=== PATIENT | male | born 1940 | race Caucasian/White ===

== ENCOUNTER 2016-06-15 08:03 | Day surgery (SDC) | payer BC ==
[2016-06-14 15:12] VITALS: BMI 27.6
[2016-06-15] MEDS ORDERED: LIDOCAINE HCL/PF 2% SDV 5ML VIAL ONE (08:54)
[2016-06-15] MEDS ORDERED: PROPOFOL 20 ML ONE (08:54)
[2016-06-15] MEDS ORDERED: LIDOCAINE HCL 2% JELLY 10 ML CARTRIDGE ONE (09:21)
[2016-06-15] MEDS ORDERED: LIDOCAINE HCL 2% JELLY 10 ML CARTRIDGE TP ONE (09:25)
[2016-06-15 09:34] VITALS: TEMP 97.2
[2016-06-15 10:19] VITALS: BP 154/71; PULSE 67
== END 2016-06-15 10:31 | disposition home or self-care (01) ==
LOC: JASU-ENDO 08:03
PROVIDERS: ATTEND Internal Medicine Gastroenterology
PROC: 06LY4CC Occlusion of Hemorrhoidal Plexus with Extraluminal Device, Percutaneous Endoscopic Approach (ICD-10-PCS; principal; 2016-06-15 09:15)
DX: K62.5 Hemorrhage of anus and rectum (principal); K64.8 Other hemorrhoids

== ENCOUNTER 2017-06-27 11:14 | Inpatient (IN) | payer BC, OTHER ==
--- NOTE | 2017-06-27 11:59 | PDOC ---
History of Present Illness - General Chief Complaint: Chest Pain Stated Complaint: CHEST PAIN Time Seen by Provider: 06/27/17 11:43 - History of Present Illness Initial Comments: 06/27/17 11:43 77M with hx of asthma, emphysema, HTN, CAD s/p CABG who presents to the ED with sudden onsent 7/10 R axillary chest pain this morning. Pt reports being in chair when his chest pain suddenly occured. He endorses having some diaphoresis and feeling nauseous when this occurred. Pt report never having pain like this before and that this wasn't similar to when he had his prior CAD episodes. Pt states his pain waxes and wanes now, but has had his pain continuously since the morning. Pt normally sees Dr. Reece in the outpatient setting every 3 months and nothing was notable on his last visit. Pt denies any vomiting, jaw claudication, radiation of pain to other structures, frequent dyspepsia, metallic taste in mouth, abdominal pain, diarrhea, constipation, and tearing back pain. Past History - Past Medical History Allergies/Adverse Reactions: Allergies Allergy/AdvReac Type Severity Reaction Status Date / Time No Known Drug Allergies Allergy Verified 06/27/17 11:17 Home Medications: Ambulatory Orders Albuterol Sulfate [Proventil HFA Inhaler -] 1 - 2 inh PO QID PRN 12/06/12 Clopidogrel Bisulfate [Plavix -] 75 mg PO DAILY 12/06/12 [place]-3 Acid Ethyl Esters [Lovaza -] 2,000 mg PO BID 12/06/12 Simvastatin [Zocor] 80 mg PO HS 12/06/12 Valsartan/Hydrochlorothiazide [Diovan Hct 80-12.5 mg Tablet -] 1 tab PO DAILY Aspirin Coated [Ecotrin -] 81 mg PO DAILY #0 tablet.ec 12/08/12 Atorvastatin Ca [Lipitor] 10 mg PO HS #0 tablet 12/08/12 Hydrochlorothiazide [Hctz -] 12.5 mg PO DAILY #0 cap 12/08/12 Asthma: Yes Cardiac Disorders: Yes (ASCAD) COPD: Yes HTN: Yes Hypercholesterolemia: Yes - Surgical History Abdominal Surgery: Yes (ING HERNIA) Cardiac Surgery: Yes (3 vessel 1996, ST[facility]) - Suicide/Smoking/Psychosocial Hx Smoking History: Never smoked Information on smoking cessation initiated: No Hx Alcohol Use: Yes (wine/dinner) Drug/Substance Use Hx: No Substance Use Type: Alcohol Hx Substance Use Treatment: No *Physical Exam - Vital Signs Last Vital Signs Temp Pulse Resp BP Pulse Ox 50 L 18 137/59 100 06/27/17 11:18 06/27/17 11:18 06/27/17 11:18 06/27/17 11:18 - Physical Exam Comments: 06/27/17 11:51 GEN: NAD, awake, alert and oriented x3, laying in bed HEENT: EOMI, CONNER, no JVD, moist mucosa Lungs: CTA bilaterally, no wheezes rales or rhonchi heard Cardiac: Bradycardic with regular rhythm. 2/6 systolic murmur heard at apex CHEST: No reproducible pain with palpation Abdomen: Soft, nondistended, normoactive bowel sounds, slight tenderness in RUQ , no guarding, no rebound, no shifting dullness, no hepatomegaly. EXT: No edema, warm 2+ DP pulses Heart Score/ECG Review #1 06/27/17 11:50 Bradycardic to 51bpm. NSR. OR interval normal. No ST elevations noted. No previous to compare at this time ED Treatment Course - LABORATORY CBC & Chemistry Diagram: 06/27/17 12:14 06/27/17 12:00 Medical Decision Making - Medical Decision Making 06/27/17 11:50 77yo M with atypical chest pain, however higher risk for ACS --EKG on admission showing bradycardia to 51bpm with no ST elevations --CBC, CMP, Cardiac profile --ASA 325mg x1 --CXR --Pt is hemodynamically stable at this time 06/27/17 12:30 --Pt signed out to Dr. Reid *DC/Admit/Observation/Transfer Diagnosis at time of Disposition: ACS (acute coronary syndrome) - Referrals Referrals: Servando Celestin MD [Primary Care Provider] - - Patient Instructions - Post Discharge Activity
[2017-06-27] MEDS ORDERED: ASPIRIN 325 MG TABLET PO ONE (12:05)
--- NOTE | 2017-06-27 12:09 | PDOC ---
Attending Attestation - Resident Resident Name: Kenneth Marquez - ED Attending Attestation I have performed the following: I have examined & evaluated the patient, The case was reviewed & discussed with the resident, I agree w/resident's findings & plan, Exceptions are as noted - HPI HPI: 06/27/17 13:49 77-year-old male with a history of hypertension and CAD copd cabg here today complaining of right-sided chest pain and upper abdominal pain. Patient states symptoms started today with sudden onset did notice the pain was worse after eating he has not had any vomiting this morning but has been belching frequently. No cough no shortness of breath no fevers or chills no previous abdominal surgery no history of PE or DVT. 06/27/17 13:52 - Physicial Exam PE: 06/27/17 13:50 On exam awake alert no acute distress cardiac exam is regular rate no murmurs rubs or gallops abdomen is soft there is noted epigastric and right upper quadrant tenderness to palpation with a positive Mark sign. No CVA tenderness. Lungs lungs have faint expiratory wheezes at at bilateral bases and poor air flow extremities are warm and well perfused without edema neurological patient is alert and oriented 3 moving all extremities bases symmetric skin is warm and dry - Medical Decision Making 06/27/17 12:04 06/27/17 13:51 69 or male history of hypertension and CAD hyperlipidemia and emphysema here with right-sided chest pain upper abdominal pain and a positive Mark sign on exam Differential includes ACS, right-sided pneumonia with secondary effusion, cholecystitis or cholelithiasis, plan ultrasound the right upper quadrant chest x-ray labs including CBC CMP troponin and urinalysis reassess 06/27/17 16:33 focused eD ultrasound gallbladder indication pain findings multiple stones and sludge. gallbladder wall measured 4mm. positive larry cholecystic fluid and wall edema. cbd 7 mm. positive sonographic mark sign. impression: cholecystitis with stones and sludge. cirilli 06/27/[address] Angeles colindres, surgery consult, awaiting call back. Heart Score/ECG Review #1 General ECG Interpretation: Normal Intervals, No acute ischemic changes 06/27/17 19:02 sinus bradycardia. 51 bpm
[2017-06-27] MEDS ORDERED: ASPIRIN 325 MG TABLET ONE (12:11)
--- NOTE | 2017-06-27 12:37 | PDOC ---
*Physical Exam - Vital Signs Last Vital Signs Temp Pulse Resp BP Pulse Ox 50 L 18 137/59 100 06/27/17 11:18 06/27/17 11:18 06/27/17 11:18 06/27/17 11:18 ED Treatment Course - LABORATORY CBC & Chemistry Diagram: 06/27/17 12:14 06/27/17 12:00 - Medications Given in the ED: ED Medications Discontinued Medications Generic Name Dose Route Start Last Admin Trade Name Enedina PRN Reason Stop Dose Admin Aspirin 325 mg 06/27/17 12:05 06/27/17 12:13 Asa - PO 06/27/17 12:06 325 mg ONCE ONE Administration Medical Decision Making - Medical Decision Making 06/27/17 12:37 The patient was signed out to me by Dr. Marquez, day team. The patient is a 77M presenting with atypical CP. Pending labs and imaging. Likely dispo is obs for ACS workup. 06/27/17 12:56 On reevaluation, the patient had a positive cordova's sign. Will place order for RUQ U/S. 06/27/17 14:41 RUQ U/S read: IMPRESSION: Biliary sludge versus small calculi. Please see above discussion. The gallbladder is normal in size and does contain echogenic material that may represent biliary sludge. The possibility of small calculi cannot be excluded. There is no evidence of intra or extrahepatic biliary duct dilatation. Will discuss with radiologist regarding signs of cholecystitis. Pt is continuing to have severe RUQ tenderness. 06/27/17 15:08 Lipase >30,000. Will microblog Dr. Finch for admission. 06/27/17 15:42 I have endorsed the pt to [facility] for admission. Blood cx and lactate ordered. Will give pt IVF. 06/27/17 15:55 Repeat BP is 179/85. Will give 4 morphine for pain control. *DC/Admit/Observation/Transfer Diagnosis at time of Disposition: ACS (acute coronary syndrome) - Discharge Dispostion Condition at time of disposition: Stable Admit: Yes - Referrals Referrals: Servando Celestin MD [Primary Care Provider] - - Patient Instructions - Post Discharge Activity
[2017-06-27 13:02] LABS: BASO % 0.6 % (0-2.0); EOS % 0.9 % (0-4.5); HEMATOCRIT 44.5 % (35.4-49); HEMOGLOBIN 15.3 GM/dL (11.7-16.9); LYMPH % 26.1 % (8-40); MCH 30.8 pg (25.7-33.7); MCHC 34.3 g/dl (32.0-35.9); MEAN CELL VOLUME 89.7 fl (80-96); MEAN PLT VOLUME 8.3 fl (7.5-11.1); NEUT % 67.4 % (42.8-82.8); PLATELET COUNT 224 K/MM3 (134-434); RBC 4.96 M/mm3 (4.00-5.60); RDW 13.8 % (11.9-15.9); WHITE BLOOD COUNT 10.7 K/mm3 (4.0-10.0)
[2017-06-27 13:16] LABS: ALBUMIN 4.1 g/dl (3.4-5.0); ANION GAP 6 (8-16); BLOOD UREA NITROGEN 23 mg/dL (7-18); CHLORIDE 103 mmol/L (98-107); CO2 30 mmol/L (21-32); GLUCOSE,RANDOM 145 mg/dL (74-106); SGPT/ALT 63 U/L (12-78); SODIUM 139 mmol/L (136-145)
[2017-06-27 13:18] LABS: ALK PHOS 121 U/L (45-117); BILIRUBIN,TOTAL 0.9 mg/dL (0.2-1.0); TOT PROT 8.1 g/dl (6.4-8.2)
[2017-06-27 13:21] LABS: POTASSIUM 3.7 mmol/L (3.5-5.1); SGOT/AST 106 U/L (15-37)
[2017-06-27] MEDS ORDERED: SODIUM CHLORIDE 0.9% 1000 ML INFUS.BAG IV ONE ×2 (15:29→15:30)
[2017-06-27] MEDS ORDERED: PIPERACIL/TAZOB 3.375 GM 3.375 GM/50 ML PREMIX IVPB ONE (15:30)
--- NOTE | 2017-06-27 15:43 | HP ---
Admitting History and Physical - Primary Care Physician PCP: Servando Celestin - Admission Chief Complaint: abd pain History of Present Illness: is a pleasant 77 year old male pmh of HTN, ASHD, CA-s/p CABG(1995), Asthma, Emphysema who presents with new onset right upper abdominal pain x 1 day. Pt reports he had breakfast this am and started to get severe RUQ/ epigastric abdominal pain radiating to back and right anterior chest/thorax. Associated symptoms include nausea, vomiting, belching, dizziness and chills. He describes abdominal pain as tight 9/10 intermittent severe pain. Pt reports pain is tolerable now rating 5/10. Unable to report alleviating/worsening factors. He reports he was at a alliance party last night and had 3 glasses of wine. Denies any new medication. He denies any chest discomfort, sob, fever, diarrhea , headache, or weakness. History Source: Patient, Family Member Limitations to Obtaining History: Language Barrier - Past Medical History Cardiovascular: Yes: CAD, HTN, Hyperlipdemia, CA Pulmonary: Yes: Asthma, COPD (emphysema) - Past Surgical History Past Surgical History: Yes: CABG (1995), Hernia Repair (inguinal) - Smoking History Smoking history: Former smoker Have you smoked in the past 12 months: No - Alcohol/Substance Use Hx Alcohol Use: Yes (wine/dinner) Number of Drinks Daily: 2 History of Substance Use: reports: None - Social History Usual Living Arrangement: Yes: With Spouse Home Medications - Allergies Allergies/Adverse Reactions: Allergies Allergy/AdvReac Type Severity Reaction Status Date / Time No Known Drug Allergies Allergy Verified 06/27/17 11:17 - Home Medications Home Medications: Ambulatory Orders Albuterol Sulfate [Proair Hfa] 8.5 gm IH Q4HWA PRN 06/27/17 Atorvastatin Ca [Lipitor] 40 mg PO HS 06/27/17 Clopidogrel Bisulfate [Plavix] 75 mg PO DAILY 06/27/17 Valsartan/Hydrochlorothiazide [Valsartan-Hctz 160-25 mg Tab] 1 each PO DAILY 12/06 Family Disease History - Family Disease History Family Disease History: Diabetes: Sister, Heart Disease: Mother Physical Examination Vital Signs: Vital Signs Temperature Pulse Rate 50 L 06/27/17 11:18 Respiratory Rate 18 06/27/17 11:18 Blood Pressure 137/59 06/27/17 11:18 O2 Sat by Pulse Oximetry (%) 100 06/27/17 11:18 Constitutional: Yes: Well Nourished, No Distress Cardiovascular: Yes: WNL, Regular Rate and Rhythm. No: Bruit, Gallop, Murmur Respiratory: Yes: WNL, Regular, CTA Bilaterally. No: SOB, Tachypnea, Wheezes Gastrointestinal: Yes: Soft, Hypoactive Bowel Sounds, Tenderness, Epigastrium. No: Distention Renal/: Yes: WNL Edema: No Neurological: Yes: WNL, Alert, Oriented Psychiatric: Yes: WNL, Alert, Oriented Labs: CBC, BMP 06/27/17 12:14 06/27/17 12:00 Imaging - Results Chest X-ray: Report Reviewed Cat Scan: Pending Ultrasound: Report Reviewed EKG: Report Reviewed Problem List - Problems (1) Acute pancreatitis Assessment/Plan: acute, lipase>30,000 with elevated alk phos I suspect biliary induced lactic acid >3 , mild leukocytosis abd US with biliary sludge/stones abd CT with contrast to r/o necrosis LR 200mL/hr x 12 hours then 150ml/hr continuous Levofloxacin and flagyl ordered GI consulted will consult surgery based on CT results Code(s): K85.90 - ACUTE PANCREATITIS WITHOUT NECROSIS OR INFECTION, UNSP Qualifiers: Pancreatitis type: biliary Acute pancreatitis complication: unspecified Qualified Code(s): K85.10 - Biliary acute pancreatitis without necrosis or infection (2) Chest pain Assessment/Plan: pt reports right sided chest pain originated from the abdomen less likely ACS, trop neg , ekg without acute changes secondary to acute pancreatitis Code(s): R07.9 - CHEST PAIN, UNSPECIFIED Qualifiers: Chest pain type: other chest pain Qualified Code(s): R07.89 - Other chest pain; R07.8 - Other chest pain (3) Leukocytosis Assessment/Plan: mildly elevated, could be hemoconcentrated considering elevated lactic acid, will start iv antibiotics Code(s): D72.829 - ELEVATED WHITE BLOOD CELL COUNT, UNSPECIFIED (4) HTN (hypertension) Assessment/Plan: stable could be better controlled hold hct in the setting of acute pancreatitis diovan ordered will monitor Code(s): I10 - ESSENTIAL (PRIMARY) HYPERTENSION Qualifiers: Hypertension type: essential hypertension Qualified Code(s): I10 - Essential (primary) hypertension (5) Hyperlipidemia Assessment/Plan: chronic lipid panel ordered hold statin in the setting of transaminitis Code(s): E78.5 - HYPERLIPIDEMIA, UNSPECIFIED (6) ASHD (arteriosclerotic heart disease) Assessment/Plan: stable, s/p cabg(1995) continue plavix followed by cardiology outpt Code(s): I25.10 - ATHSCL HEART DISEASE OF [place] CORONARY ARTERY W/O ANG PCTRS (7) Emphysema lung Assessment/Plan: stable albuterol prn Code(s): J43.9 - EMPHYSEMA, UNSPECIFIED Qualifiers: Emphysema type: unspecified Qualified Code(s): J43.9 - Emphysema, unspecified
[2017-06-27] MEDS ORDERED: PIPERACILLIN/TAZOB 3.375 GM 3.375 GM in DEXTROSE 5%-WATER - 50 ML IVPB ONE (15:45)
[2017-06-27] MEDS ORDERED: PIPERACILLIN/TAZOB 3.375 GM 3.375 GM/50 ML BAG IVPB ONE (15:52)
[2017-06-27] MEDS ORDERED: morphine CARPU-JECT 4 MG/1 ML DISP.SYRIN IVPUSH ONE (15:55)
[2017-06-27] MEDS ORDERED: ALBUTEROL SO4 18 GM HFA INHALER IH PRN (16:29)
[2017-06-27] MEDS ORDERED: LACTATED RINGERS SOLUTION 1000 ML INFUS.BAG IV SCH (16:30)
[2017-06-27] MEDS ORDERED: LACTATED RINGERS SOLUTION 1,000 ML IV SCH (17:15)
[2017-06-27] MEDS ORDERED: morphine SULFATE 4 MG/ML VIAL IVPUSH ONE (17:30)
[2017-06-27] MEDS ORDERED: morphine SULFATE 4 MG/ML VIAL IVPUSH PRN (18:00)
[2017-06-27 19:41] LABS: LIPASE > 30000 U/L (73-393)
[2017-06-27] MEDS ORDERED: ONDANSETRON 4 MG/2 ML VIAL IVPUSH PRN (20:23)
[2017-06-27] MEDS ORDERED: CEFEPIME HCL/D5W 2 GM/50 ML BAG IVPB SCH (20:30)
[2017-06-27] MEDS ORDERED: ONDANSETRON 4 MG/2 ML VIAL IVPUSH ONE (20:30)
[2017-06-27] MEDS: VALSARTAN 160 MG TABLET (UD) PO SCH (22:46)
--- NOTE | 2017-06-27 23:47 | EKG ---
Test Reason : Blood Pressure : / mmHG Vent. Rate : 051 BPM Atrial Rate : 051 BPM P-R Int : 130 ms QRS Dur : 102 ms QT Int : 518 ms P-R-T Axes : 070 003 033 degrees QTc Int : 477 ms SINUS BRADYCARDIA POSSIBLE LEFT ATRIAL ENLARGEMENT INFERIOR INFARCT (CITED ON OR BEFORE 01-APR-2003) ABNORMAL ECG WHEN COMPARED WITH ECG OF 01-APR-2003 09:45, T WAVE VARIATION Confirmed by KEDAR DUPREE, LACY ([id number]) on 06/27/2017 11:46:30 PM Referred By: Confirmed By:LACY THACKER MD
[2017-06-28 03:18] VITALS: BMI 25.9
[2017-06-28] MEDS ORDERED: LACTATED RINGERS SOLUTION 1,000 ML IV SCH (05:30)
[2017-06-28 07:42] LABS: BASO % 0.1 % (0-2.0); HEMOGLOBIN 13.2 GM/dL (11.7-16.9); LYMPH % 3.7 % (8-40); MCHC 34.8 g/dl (32.0-35.9); MEAN PLT VOLUME 8.2 fl (7.5-11.1); MONO % 2.5 % (3.8-10.2); NEUT % 93.7 % (42.8-82.8); PLATELET COUNT 171 K/MM3 (134-434); RBC 4.27 M/mm3 (4.00-5.60); RDW 13.9 % (11.9-15.9); WHITE BLOOD COUNT 12.9 K/mm3 (4.0-10.0)
[2017-06-28 08:16] LABS: AMYLASE 561 U/L (25-115)
[2017-06-28 08:18] LABS: LIPASE 4327 U/L (73-393)
[2017-06-28 08:31] LABS: CHLORIDE 103 mmol/L (98-107); POTASSIUM 3.2 mmol/L (3.5-5.1); SODIUM 142 mmol/L (136-145)
[2017-06-28 08:41] LABS: ALBUMIN 3.4 g/dl (3.4-5.0); ALK PHOS 72 U/L (45-117); BILIRUBIN,TOTAL 0.9 mg/dL (0.2-1.0); BLOOD UREA NITROGEN 20 mg/dL (7-18); CALCIUM 8.1 mg/dL (8.5-10.1); CHOLESTEROL 172 mg/dL (50-200); CO2 29 mmol/L (21-32); CREATININE 1.1 mg/dL (0.7-1.3); GLUCOSE,RANDOM 104 mg/dL (74-106); HDL CHOLESTEROL 59 mg/dL (40-60); MAGNESIUM 1.4 mg/dL (1.8-2.4); PHOSPHOROUS 2.6 mg/dL (2.5-4.9); SGOT/AST 38 U/L (15-37); SGPT/ALT 55 U/L (12-78); TOT PROT 6.3 g/dl (6.4-8.2); TRIGLYCERIDES 102 mg/dL (35-160)
[2017-06-28] MEDS ORDERED: MAGNESIUM 2GM/50ML STERILE WATER IVPB IVPB ONE (09:04)
[2017-06-28] MEDS: VALSARTAN 160 MG TABLET (UD) PO SCH (09:59)
[2017-06-28] MEDS ORDERED: CLOPIDOGREL BISULFATE 75 MG TABLET (FP) PO SCH (10:00)
[2017-06-28] MEDS ORDERED: KCL 10 MEQ IVPB 10 MEQ/100 ML INFUS.BAG IVPB SCH (10:45)
[2017-06-28] MEDS ORDERED: POTASSIUM CHLORIDE 20 MEQ in SODIUM CHLORIDE 250 ML IVPB ONE (11:00)
--- NOTE | 2017-06-28 14:48 | PN ---
Progress Note, Physician Chief Complaint: Pt lying in bed in no acute distress. reports intermittent abd pain. denies any chest discomfort, n/v/d - Current Medication List Current Medications: Active Medications Albuterol Sulfate (Ventolin Hfa Inhaler -) 2 puff IH Q4H PRN PRN Reason: SHORTNESS OF BREATH Clopidogrel Bisulfate (Plavix -) 75 mg PO DAILY [facility] Last Admin: 06/28/17 10:00 Dose: 75 mg Lactated Ringer's (Lactated Ringers Solution) 1,000 mls @ 150 mls/hr IV ASDIR [facility] Last Admin: 06/28/17 09:58 Dose: Not Given Metronidazole (Flagyl 500mg Premixed Ivpb -) 500 mg in 100 mls @ 100 mls/hr IVPB Q8H-IV [facility] Last Admin: 06/28/17 09:59 Dose: 100 mls/hr Levofloxacin (Levaquin 500 Mg Premixed Ivpb -) 500 mg in 100 mls @ 100 mls/hr IVPB DAILY [facility] Last Admin: 06/28/17 10:00 Dose: 100 mls/hr Morphine Sulfate (Morphine Sulfate) 2 mg IVPUSH Q4H PRN PRN Reason: PAIN LEVEL 6-10 Last Admin: 06/28/17 10:12 Dose: 2 mg Ondansetron HCl (Zofran Injection) 4 mg IVPUSH Q6H PRN PRN Reason: NAUSEA Last Admin: 06/28/17 01:00 Dose: 4 mg Valsartan (Diovan -) 160 mg PO DAILY [facility] Last Admin: 06/28/17 09:59 Dose: 160 mg - Objective Vital Signs: Vital Signs Temperature 98.5 F 06/28/17 05:00 Pulse Rate 69 06/28/17 05:00 Respiratory Rate 20 06/28/17 05:00 Blood Pressure 123/53 06/28/17 05:00 O2 Sat by Pulse Oximetry (%) 97 06/27/17 19:30 Constitutional: Yes: Well Nourished, No Distress Cardiovascular: Yes: WNL, Regular Rate and Rhythm. No: Bruit, Gallop, Murmur Respiratory: Yes: WNL, Regular, CTA Bilaterally. No: Rhonchi, SOB, Tachypnea, Wheezes Gastrointestinal: Yes: WNL, Hypoactive Bowel Sounds, Tenderness, Epigastrium. No: Distention Genitourinary: Yes: WNL Edema: No Neurological: Yes: WNL, Alert, Oriented Psychiatric: Yes: WNL, Alert, Oriented Labs: CBC, BMP 06/28/17 07:00 06/28/17 07:00 - ....Imaging Cat Scan: Report Reviewed Problem List - Problems (1) Acute pancreatitis Code(s): K85.90 - ACUTE PANCREATITIS WITHOUT NECROSIS OR INFECTION, UNSP Qualifiers: Pancreatitis type: biliary Acute pancreatitis complication: unspecified Qualified Code(s): K85.10 - Biliary acute pancreatitis without necrosis or infection (2) Chest pain Code(s): R07.9 - CHEST PAIN, UNSPECIFIED Qualifiers: Chest pain type: other chest pain Qualified Code(s): R07.89 - Other chest pain; R07.8 - Other chest pain (3) Leukocytosis Code(s): D72.829 - ELEVATED WHITE BLOOD CELL COUNT, UNSPECIFIED (4) HTN (hypertension) Code(s): I10 - ESSENTIAL (PRIMARY) HYPERTENSION Qualifiers: Hypertension type: essential hypertension Qualified Code(s): I10 - Essential (primary) hypertension (5) Hyperlipidemia Code(s): E78.5 - HYPERLIPIDEMIA, UNSPECIFIED (6) ASHD (arteriosclerotic heart disease) Code(s): I25.10 - ATHSCL HEART DISEASE OF [place] CORONARY ARTERY W/O ANG PCTRS (7) Emphysema lung Code(s): J43.9 - EMPHYSEMA, UNSPECIFIED Qualifiers: Emphysema type: unspecified Qualified Code(s): J43.9 - Emphysema, unspecified Assessment/Plan (1) Acute pancreatitis Assessment/Plan: acute, lipase>30,000 with elevated alk phos at admission, Improving lfts improved, suspect passing of stone lactic acid improving, leukocytosis abd US with biliary sludge/stones abd CT consistent w/ pancreatitis, gallbladder not mentioned, radialogy called, no response, GI to f/u on CT results MRCP pending- r/o cbd stone LR 150ml/hr Levofloxacin and flagyl GI following will consult surgery based on GI recs Code(s): K85.90 - ACUTE PANCREATITIS WITHOUT NECROSIS OR INFECTION, UNSP Qualifiers: Pancreatitis type: biliary Acute pancreatitis complication: unspecified Qualified Code(s): K85.10 - Biliary acute pancreatitis without necrosis or infection (2) Chest pain Assessment/Plan: resolved Code(s): R07.9 - CHEST PAIN, UNSPECIFIED Qualifiers: Chest pain type: other chest pain Qualified Code(s): R07.89 - Other chest pain; R07.8 - Other chest pain (3) Leukocytosis Assessment/Plan: trended up w/ left shift lactic acid improved continue antibiotics will monitor Code(s): D72.829 - ELEVATED WHITE BLOOD CELL COUNT, UNSPECIFIED (4) HTN (hypertension) Assessment/Plan: controlled hold hct in the setting of acute pancreatitis diovan ordered will monitor Code(s): I10 - ESSENTIAL (PRIMARY) HYPERTENSION Qualifiers: Hypertension type: essential hypertension Qualified Code(s): I10 - Essential (primary) hypertension (5) Hyperlipidemia Assessment/Plan: chronic lipid panel ordered hold statin in the setting of transaminitis Code(s): E78.5 - HYPERLIPIDEMIA, UNSPECIFIED (6) ASHD (arteriosclerotic heart disease) Assessment/Plan: stable, s/p cabg(1995) continue plavix followed by cardiology outpt Code(s): I25.10 - ATHSCL HEART DISEASE OF [place] CORONARY ARTERY W/O ANG PCTRS (7) Emphysema lung Assessment/Plan: stable albuterol prn Code(s): J43.9 - EMPHYSEMA, UNSPECIFIED Qualifiers: Emphysema type: unspecified Qualified Code(s): J43.9 - Emphysema, unspecified
--- NOTE | 2017-06-28 19:53 | CON.GI ---
Consult Consult Specialty:: Gastroenterology Referred by:: Dr. Celestin Reason for Consultation:: Biliary pancreatitis - History of Present Illness Chief Complaint: Abdominal and right back pain History of Present Illness: 77M developed pain in the right scapula after eating breakfast yesterday. The pain became very severe and he felt chills and diaphoresis. He later developed severe epigastric pain which required morphine in the ER where he also vomited. The severe pain has subsided but he has a residual ache. He has had twinges of scapular pain before but never so severe. He was previously followed by Dr Egan who last did polypectomies. He last had a colonoscopy on 06/15/[address] associate [address] Ryan Meyer who did rubber band ligation of hemorrhoids for persistent bleeding. No polyps were found. He has enjoyed good luis antonio recently with a good appetite. He moves his bowel regularly. - History Source History Provided By: Patient, Family Member Limitations to Obtaining History: No Limitations - Past Medical History Cardio/Vascular: Yes: CAD ([place] in 1995 with CABG and subsequent stents), HTN, Hyperlipdemia, [place] (1995 when he underwent a 3 vessel CABG at [facility]) Pulmonary: Yes: Asthma, COPD (emphysema) Gastrointestinal: Yes: Hemorrhoids (rubber band ligated 06/15/16), Other (colon polyps) Renal/: Yes: Cancer (prostate cancer treated with RT) - Past Surgical History Past Surgical History: Yes: CABG (1995), Carotid Endarterectomy (right side 2012 ), Colonoscopy, Hernia Repair (left inguinal) - Alcohol/Substance Use Hx Alcohol Use: Yes (wine/dinner) Number of Drinks Daily: 2 History of Substance Use: reports: None - Smoking History Smoking history: Former smoker Have you smoked in the past 12 months: No If you are a former smoker, when did you quit?: 1995 - Social History Usual Living Arrangement: With Spouse ADL: Independent Occupation: retired form [email or web address] Place of : Other ([place]) Came to [place] (year[place] age19 History of Recent Travel: No Home Medications - Allergies Allergies/Adverse Reactions: Allergies Allergy/AdvReac Type Severity Reaction Status Date / Time No Known Drug Allergies Allergy Verified 06/27/17 11:17 - Home Medications Home Medications: Ambulatory Orders Albuterol Sulfate [Proair Hfa] 8.5 gm IH Q4HWA PRN 06/27/17 Atorvastatin Ca [Lipitor] 40 mg PO HS 06/27/17 Clopidogrel Bisulfate [Plavix] 75 mg PO DAILY 06/27/17 Valsartan/Hydrochlorothiazide [Valsartan-Hctz 160-25 mg Tab] 1 each PO DAILY 12/06 Family Disease History - Family Disease History Family Disease History: Diabetes: Sister, Heart Disease: Mother Review of Systems - Review of Systems Constitutional: reports: Chills, Diaphoresis Eyes: reports: No Symptoms HENT: reports: No Symptoms Neck: reports: No Symptoms Cardiovascular: reports: No Symptoms Respiratory: reports: No Symptoms Gastrointestinal: reports: Abdominal Pain, Nausea, Vomiting Genitourinary: reports: No Symptoms Musculoskeletal: reports: No Symptoms Neurological: reports: No Symptoms Physical Exam-GI Vital Signs: Vital Signs Temperature 98.8 F 06/28/17 14:00 Pulse Rate 73 06/28/17 14:00 Respiratory Rate 20 06/28/17 09:00 Blood Pressure 116/57 06/28/17 14:00 O2 Sat by Pulse Oximetry (%) 96 06/28/17 09:00 CBC,CMP WBC 12.9 K/mm3 (4.0-10.0) H 06/28/17 07:00 RBC 4.27 M/mm3 (4.00-5.60) 06/28/17 07:00 Hgb 13.2 GM/dL (11.7-16.9) D 06/28/17 07:00 Hct 38.0 % (35.4-49) 06/28/17 07:00 MCV 89.0 fl (80-96) 06/28/17 07:00 MCH 31.0 pg (25.7-33.7) 06/28/17 07:00 MCHC 34.8 g/dl (32.0-35.9) 06/28/17 07:00 RDW 13.9 % (11.9-15.9) 06/28/17 07:00 Plt Count 171 K/MM3 (134-434) D 06/28/17 07:00 MPV 8.2 fl (7.5-11.1) 06/28/17 07:00 Neutrophils % 93.7 % (42.8-82.8) H D 06/28/17 07:00 Lymphocytes % 3.7 % (8-40) L D 06/28/17 07:00 Monocytes % 2.5 % (3.8-10.2) L 06/28/17 07:00 Eosinophils % 0.0 % (0-4.5) D 06/28/17 07:00 Basophils % 0.1 % (0-2.0) 06/28/17 07:00 Sodium 142 mmol/L (136-145) 06/28/17 07:00 Potassium 3.2 mmol/L (3.5-5.1) L 06/28/17 07:00 Chloride 103 mmol/L (98-107) 06/28/17 07:00 Carbon Dioxide 29 mmol/L (21-32) 06/28/17 07:00 Anion Gap 6 (8-16) L 06/27/17 12:00 BUN 20 mg/dL (7-18) H 06/28/17 07:00 Creatinine 1.1 mg/dL (0.7-1.3) 06/28/17 07:00 Creat Clearance w eGFR > 60 (>60) 06/28/17 07:00 POC Glucometer 104 UNITS (80-120) 06/28/17 17:14 Random Glucose 104 mg/dL (74-106) D 06/28/17 07:00 Lactic Acid 2.8 mmol/L (0.0-2.0) H* 06/28/17 07:00 Calcium 8.1 mg/dL (8.5-10.1) L 06/28/17 07:00 Phosphorus 2.6 mg/dL (2.5-4.9) 06/28/17 07:00 Magnesium 1.4 mg/dL (1.8-2.4) L 06/28/17 07:00 Total Bilirubin 0.9 mg/dL (0.2-1.0) 06/28/17 07:00 AST 38 U/L (15-37) H D 06/28/17 07:00 ALT 55 U/L (12-78) 06/28/17 07:00 Alkaline Phosphatase 72 U/L (45-117) D 06/28/17 07:00 Creatine Kinase 259 IU/L (39-308) 06/27/17 12:00 Creatine Kinase Index 1.3 % (0.0-5.0) 06/27/17 12:00 CK-MB (CK-2) 3.372 ng/mL (0.5-3.6) 06/27/17 12:00 Troponin I 0.02 ng/ml (0.00-0.05) 06/28/17 07:00 Total Protein 6.3 g/dl (6.4-8.2) L D 06/28/17 07:00 Albumin 3.4 g/dl (3.4-5.0) 06/28/17 07:00 Triglycerides 102 mg/dL (35-160) 06/28/17 07:00 Cholesterol 172 mg/dL (50-200) 06/28/17 07:00 Total LDL Cholesterol 98 mg/dL (5-100) 06/28/17 07:00 HDL Cholesterol 59 mg/dL (40-60) 06/28/17 07:00 Total Amylase 561 U/L (25-115) H 06/28/17 07:00 Lipase 4327 U/L (73-393) H 06/28/17 07:00 Current Medications Generic Name Dose Route Start Last Admin Trade Name Freq PRN Reason Stop Dose Admin Albuterol Sulfate 2 puff 06/27/17 16:29 Ventolin Hfa Inhaler - IH Q4H PRN SHORTNESS OF BREATH Clopidogrel Bisulfate 75 mg 06/28/17 10:00 06/28/17 10:00 Plavix - PO 75 mg DAILY SIMONE Administration Lactated Ringer's 1,000 mls @ 150 mls/hr 06/28/17 05:30 06/28/17 09:58 Lactated Ringers Solution IV Not Given ASDIR SIMONE Metronidazole 500 mg in 100 mls @ 100 mls/hr 06/27/17 20:30 06/28/17 17:57 Flagyl 500mg Premixed Ivpb - IVPB 100 mls/hr Q8H-IV SIMONE Administration Levofloxacin 500 mg in 100 mls @ 100 mls/hr 06/27/17 20:45 06/28/17 10:00 Levaquin 500 Mg Premixed Ivpb - IVPB 100 mls/hr DAILY SIMONE Administration Morphine Sulfate 2 mg 06/27/17 18:00 06/28/17 10:12 Morphine Sulfate IVPUSH 2 mg Q4H PRN Administration PAIN LEVEL 6-10 Ondansetron HCl 4 mg 06/27/17 20:23 06/28/17 01:00 Zofran Injection IVPUSH 4 mg Q6H PRN Administration NAUSEA Valsartan 160 mg 06/27/17 20:45 06/28/17 09:59 Diovan - PO 160 mg DAILY SIMONE Administration Constitutional: Yes: Anxious Eyes: Yes: Conjunctiva Clear HENT: Yes: Atraumatic Neck: Yes: Supple, Other (right sided incision) Cardiovascular: Yes: Regular Rate and Rhythm, Other (healed median sternotomy incision) Respiratory: Yes: CTA Bilaterally Gastrointestinal Inspection: Yes: Scars (healed LIH) ...Auscultate: Yes: Hypoactive Bowel Sounds ...Palpate: Yes: Tenderness, Epigastium (mild) ...Rectal Exam: Yes: Guaiac Negative, Sphincter Tone Normal Genitourinary: Yes: Other (no hernias) Edema: No Peripheral Pulses WNL: Yes Neurological: Yes: Alert Labs: CBC, BMP 06/28/17 07:00 06/28/17 07:00 Imaging - Results Cat Scan: Report Reviewed (Adarsh Marmolejo Name: [facility] DEPARTMENT OF RADIOLOGY Phys: Lauren 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 Triphasic pancreatic protocol was utilized. The pancreas is somewhat edematous in appearance with peripancreatic stranding and a small amount of fluid. This is consistent with acute pancreatitis. Clinical and laboratory correlation is recommended. There is no evidence of a peripancreatic fluid collection suggesting a pseudocyst or abscess. There is no CT evidence of pancreatic necrosis. The liver is normal in size. It is hypodense in texture consistent with diffuse fatty infiltration. No mass lesions are identified within the liver. The spleen and adrenal glands demonstrate no significant abnormalities. There are 2 small hypodensities within the cortex of the right kidney. These may represent hyperdense cysts. Ultrasound follow-up is recommended. There is no evidence of intra-abdominal or retroperitoneal lymphadenopathy or fluid collections. There is extensive calcification within the abdominal aorta and its branches, as well as the common iliac arteries. There appears to be a significant stenosis involving the right MARYANA. Clinical correlation is advised. There is no evidence of pneumoperitoneum, bowel obstruction or intra- abdominal abscess. There is no CT evidence of acute appendicitis or diverticulitis. Examination of the pelvis demonstrates no evidence of pelvic masses, fluid collections or lymphadenopathy. The patient is S/P right inguinal herniorrhaphy. There is a small fat-containing left inguinal hernia with an associated hydrocele within the left hemiscrotum. There is no evidence of acute bony abnormalities. IMPRESSION: Findings consistent with acute pancreatitis without abscess or pseudocyst formation. There is no evidence of pancreatic necrosis. No additional evidence of acute pathology within the abdomen or pelvis. Please see above discussion. Reported By: Skip Fallon MD 06/28/17906 Technologist: Tray Carter Transcribed Date/Time: 06/28/17906 Gun Number: Skip Fallon Printed Date/Time: By: Signed by: Skip Fallon Signed on: Jun-2017 09:08) Ultrasound: Report Reviewed (small GB stones vs sludge) Problem List - Problems (1) Biliary acute pancreatitis Assessment/Plan: The picture is entirely consistent with biliary pancreatitis. I explained this senait the patient and his family and discussed the potential need for an ERCP to remove the stones or at least stent the duct until Plavix wears off should cholangitis ensue. I have discussed the procedure in detail and informed them of the potential for such complications as perforation and hemorrhage. I also informed them of the potential for ERCP induced pancreatitis leading to multiorgan failure. After answering all of their questions, Kyle signed an informed consent. I explained that I suspect that he passed the stone on his own but that we need an MRCP to confirm this. I also explained that he angelito need a cholecystectomy to prevent such recurrences and that this and ERCP extractions will need to wait until the Plavix wears off. I will stop the Plavix. Continue antibiotics. Would consult surgery. Code(s): K85.10 - BILIARY ACUTE PANCREATITIS WITHOUT NECROSIS OR INFECTION (2) Cholelithiasis Code(s): K80.20 - CALCULUS OF GALLBLADDER W/O CHOLECYSTITIS W/O OBSTRUCTION (3) Colon polyps Code(s): K63.5 - POLYP OF COLON
[2017-06-29] MEDS ORDERED: ALBUTEROL SO4 18 GM HFA INHALER IH PRN (00:23)
[2017-06-29] MEDS ORDERED: ONDANSETRON 4 MG/2 ML VIAL IVPUSH PRN (00:23)
[2017-06-29] MEDS ORDERED: morphine SULFATE 4 MG/ML VIAL IVPUSH PRN (00:23)
[2017-06-29] MEDS ORDERED: LACTATED RINGERS SOLUTION 1,000 ML IV SCH ×2 (00:23→13:30)
[2017-06-29] MEDS ORDERED: PIPERACIL/TAZOB 3.375 GM 3.375 GM/50 ML PREMIX IVPB ONE (00:23)
[2017-06-29 06:30] LABS: BASO % 0.1 % (0-2.0); EOS % 0.7 % (0-4.5); HEMATOCRIT 34.7 % (35.4-49); HEMOGLOBIN 12.4 GM/dL (11.7-16.9); LYMPH % 6.7 % (8-40); MCH 31.9 pg (25.7-33.7); MCHC 35.6 g/dl (32.0-35.9); MEAN CELL VOLUME 89.5 fl (80-96); MEAN PLT VOLUME 8.4 fl (7.5-11.1); MONO % 3.4 % (3.8-10.2); NEUT % 89.1 % (42.8-82.8); PLATELET COUNT 139 K/MM3 (134-434); RBC 3.88 M/mm3 (4.00-5.60); RDW 14.3 % (11.9-15.9); WHITE BLOOD COUNT 9.5 K/mm3 (4.0-10.0)
[2017-06-29 06:35] LABS: INR 1.24 (0.82-1.09)
[2017-06-29 06:44] LABS: ALBUMIN 3.2 g/dl (3.4-5.0); ANION GAP 8 (8-16); BLOOD UREA NITROGEN 18 mg/dL (7-18); CALCIUM 8.1 mg/dL (8.5-10.1); CHLORIDE 106 mmol/L (98-107); CO2 29 mmol/L (21-32); GLUCOSE,RANDOM 97 mg/dL (74-106); MAGNESIUM 2.1 mg/dL (1.8-2.4); POTASSIUM 3.2 mmol/L (3.5-5.1); SODIUM 143 mmol/L (136-145)
[2017-06-29 06:47] LABS: ALK PHOS 66 U/L (45-117); BILIRUBIN,TOTAL 1.1 mg/dL (0.2-1.0); PHOSPHOROUS 1.4 mg/dL (2.5-4.9); SGOT/AST 44 U/L (15-37); SGPT/ALT 46 U/L (12-78)
[2017-06-29 06:48] LABS: AMYLASE 141 U/L (25-115)
[2017-06-29 06:49] LABS: LIPASE 613 U/L (73-393)
[2017-06-29] MEDS: VALSARTAN 160 MG TABLET (UD) PO SCH (09:45)
--- NOTE | 2017-06-29 11:04 | PN ---
Progress Note, Physician - Current Medication List Current Medications: Active Medications Albuterol Sulfate (Ventolin Hfa Inhaler -) 2 puff IH Q4H PRN PRN Reason: SHORTNESS OF BREATH Metronidazole (Flagyl 500mg Premixed Ivpb -) 500 mg in 100 mls @ 100 mls/hr IVPB Q8H-IV SIMONE Last Admin: 06/29/17 09:45 Dose: 100 mls/hr Lactated Ringer's (Lactated Ringers Solution) 1,000 mls @ 150 mls/hr IV ASDIR SIMONE Last Admin: 06/29/17 09:47 Dose: 150 mls/hr Levofloxacin (Levaquin 500 Mg Premixed Ivpb -) 500 mg in 100 mls @ 100 mls/hr IVPB DAILY [facility] Last Admin: 06/29/17 09:45 Dose: 100 mls/hr Morphine Sulfate (Morphine Sulfate) 2 mg IVPUSH Q4H PRN PRN Reason: PAIN LEVEL 6-10 Last Admin: 06/29/17 09:45 Dose: 2 mg Ondansetron HCl (Zofran Injection) 4 mg IVPUSH Q6H PRN PRN Reason: NAUSEA Potassium Phos/Sodium Phos (Phos-Nak Packet -) 1 packet PO TID [facility] Valsartan (Diovan -) 160 mg PO DAILY [facility] Last Admin: 06/29/17 09:45 Dose: 160 mg - Objective Vital Signs: Vital Signs Temperature 98.8 F 06/29/17 05:00 Pulse Rate 78 06/29/17 05:00 Respiratory Rate 16 06/29/17 05:00 Blood Pressure 140/67 06/29/17 05:00 O2 Sat by Pulse Oximetry (%) 97 06/28/17 21:00 Labs: CBC, BMP 06/29/17 06:00 06/29/17 06:00 INR, PTT INR 1.24 (0.82-1.09) H 06/29/17 06:00 Problem List - Problems (1) Acute pancreatitis Code(s): K85.90 - ACUTE PANCREATITIS WITHOUT NECROSIS OR INFECTION, UNSP Qualifiers: Pancreatitis type: biliary Acute pancreatitis complication: unspecified Qualified Code(s): K85.10 - Biliary acute pancreatitis without necrosis or infection (2) Chest pain Code(s): R07.9 - CHEST PAIN, UNSPECIFIED Qualifiers: Chest pain type: other chest pain Qualified Code(s): R07.89 - Other chest pain; R07.8 - Other chest pain (3) Leukocytosis Code(s): D72.829 - ELEVATED WHITE BLOOD CELL COUNT, UNSPECIFIED (4) HTN (hypertension) Code(s): I10 - ESSENTIAL (PRIMARY) HYPERTENSION Qualifiers: Hypertension type: essential hypertension Qualified Code(s): I10 - Essential (primary) hypertension (5) Hyperlipidemia Code(s): E78.5 - HYPERLIPIDEMIA, UNSPECIFIED (6) ASHD (arteriosclerotic heart disease) Code(s): I25.10 - ATHSCL HEART DISEASE OF [place] CORONARY ARTERY W/O ANG PCTRS (7) Emphysema lung Code(s): J43.9 - EMPHYSEMA, UNSPECIFIED Qualifiers: Emphysema type: unspecified Qualified Code(s): J43.9 - Emphysema, unspecified
--- NOTE | 2017-06-29 11:15 | CONSULT ---
Consult Consult Specialty:: general surgery Referred by:: rosetta Reason for Consultation:: choledocholithis and pancreatitis - History of Present Illness Chief Complaint: abdominal pain History of Present Illness: 77 yo male PMH HTN, ASHD, [place]-s/p CABG(1995), Asthma, Emphysema who presents with new onset right upper abdominal pain x 1 day. Pt reports he had breakfast this am and started to get severe RUQ/epigastric abdominal pain radiating to back and right anterior chest/thorax. Associated symptoms include nausea, vomiting, belching, dizziness and chills. He describes abdominal pain as tight 9 /10 intermittent severe pain. Pt reports pain is tolerable now rating 5/10. Unable to report alleviating/worsening factors. He reports he was at a [employer] last night and had 3 glasses of wine. Denies any new medication. Ultrasound of RUQ shows microcalculi and sludge and MRCP shows no acute obstructing stone but acute pancreatitis. We were asked to assess. - History Source History Provided By: Patient, Medical Record Limitations to Obtaining History: No Limitations - Past Medical History Cardio/Vascular: Yes: CAD ([place] in 1995 with CABG and subsequent stents), HTN, Hyperlipdemia, [place] (1995 when he underwent a 3 vessel CABG at [facility]) Pulmonary: Yes: Asthma, COPD (emphysema) Gastrointestinal: Yes: Hemorrhoids (rubber band ligated 06/15/16), Other (colon polyps) Renal/: Yes: Cancer (prostate cancer treated with RT) - Past Surgical History Past Surgical History: Yes: CABG (1995), Carotid Endarterectomy (right side 2012 ), Colonoscopy, Hernia Repair (left inguinal) - Alcohol/Substance Use Hx Alcohol Use: Yes (wine/dinner) Number of Drinks Daily: 2 History of Substance Use: reports: None - Smoking History Smoking history: Former smoker Have you smoked in the past 12 months: No If you are a former smoker, when did you quit?: 1995 - Social History Usual Living Arrangement: With Spouse ADL: Independent Occupation: retired form [employer] History of Recent Travel: No Home Medications - Allergies Allergies/Adverse Reactions: Allergies Allergy/AdvReac Type Severity Reaction Status Date / Time No Known Drug Allergies Allergy Verified 06/27/17 11:17 - Home Medications Home Medications: Ambulatory Orders Albuterol Sulfate [Proair Hfa] 8.5 gm IH Q4HWA PRN 06/27/17 Atorvastatin Ca [Lipitor] 40 mg PO HS 06/27/17 Clopidogrel Bisulfate [Plavix] 75 mg PO DAILY 06/27/17 Valsartan/Hydrochlorothiazide [Valsartan-Hctz 160-25 mg Tab] 1 each PO DAILY 12/06 Family Disease History - Family Disease History Family Disease History: Diabetes: Sister, Heart Disease: Mother Review of Systems - Review of Systems Constitutional: denies: Chills, Fever Eyes: denies: Blurred Vision, Recent Change in Vision HENT: denies: Difficult Swallowing, Throat Pain Neck: denies: Lumps, Swollen Glands Cardiovascular: denies: Chest Pain, Palpitations Respiratory: denies: Cough, SOB Gastrointestinal: reports: Abdominal Pain, Bloating, Indigestion Genitourinary: denies: Discharge, Dysuria Breasts: reports: No Symptoms Reported. denies: Pain Musculoskeletal: denies: Muscle Pain, Muscle Weakness Integumentary: denies: Lesions, Rash Neurological: denies: Confusion, Seizure, Syncope Endocrine: denies: Unexplained Weight Gain, Unexplained Weight Loss Hematology/Lymphatic: denies: Easily Bruised, Excessive Bleeding Psychiatric: denies: Anxiety, Depression Physical Exam Vital Signs: Vital Signs Temperature 98.8 F 06/29/17 05:00 Pulse Rate 78 06/29/17 05:00 Respiratory Rate 16 06/29/17 05:00 Blood Pressure 140/67 06/29/17 05:00 O2 Sat by Pulse Oximetry (%) 97 06/28/17 21:00 Vital Signs Period Temp Pulse Resp BP Sys/Hancock Pulse Ox Last 24 Hr 97.5 F-100.3 F 71-83 16-20 126-150/59-72 97-98 Constitutional: Yes: Well Nourished, No Distress, Calm Eyes: Yes: Conjunctiva Clear, EOM Intact HENT: Yes: Atraumatic, Normocephalic Neck: Yes: Supple, Trachea Midline Cardiovascular: Yes: Regular Rate and Rhythm, S1, S2. No: Murmur Respiratory: Yes: Regular, CTA Bilaterally Gastrointestinal: Yes: Normal Bowel Sounds, Soft, Abdomen, Obese, Tenderness (- murphys), Tenderness, Epigastrium. No: Distention, Tenderness, Rebound ...Rectal Exam: No: Hemorrhoids/External, Mass, Sphincter Tone Normal Renal/: No: CVA Tenderness - Left, CVA Tenderness - Right Breast(s): Yes: Gynecomastia. No: Dimpling, Discharge from Nipple Musculoskeletal: No: Muscle Pain, Muscle Weakness Extremities: No: Cool, Cyanosis Edema: No Peripheral Pulses WNL: Yes Neurological: Yes: Alert, Oriented Psychiatric: Yes: Alert, Oriented Labs: CBC, BMP 06/29/17 06:00 06/29/17 06:00 Imaging - Results Chest X-ray: Image Reviewed Cat Scan: Report Reviewed, Image Reviewed (Distended GB with small stones and sludge) Ultrasound: Report Reviewed (distended gallbladder with sludge), Image Reviewed MRI: Report Reviewed (intrahepatic ductal dilation without identified choledocholithiasis obstructing CBD), Image Reviewed EKG: Image Reviewed Problem List - Problems (1) Biliary acute pancreatitis Assessment/Plan: 77yo male MMP significant Cardiac history with gallstone pancreatitis, transient obstruction with gallstone NPO IVF hydration Trend labs Hold plavix in anticipation of OR sunday 07/02 Cardiology clearence for general anesthesia and abdominal surgery Discussed with patient risks, benefits and alternatives of laparoscopic possible open cholecystectomy, including but not limited to bleeding, infection , injury to adjacent structures, leak or injury, intraabdominal abscess, need for further procedures, ; alternatives include antibiotics, delayed or no surgery - risks of this include failure of nonoperative therapy, perforation, sepsis, recurrence, . Daughter is deciding on surgery will follow Thank you for the opportunity to participate in the care of this patient. Code(s): K85.10 - BILIARY ACUTE PANCREATITIS WITHOUT NECROSIS OR INFECTION Qualifiers: Acute pancreatitis complication: no infection or necrosis Qualified Code(s) : K85.10 - Biliary acute pancreatitis without necrosis or infection (2) ACS (acute coronary syndrome) Code(s): I24.9 - ACUTE ISCHEMIC HEART DISEASE, UNSPECIFIED (3) Cholelithiasis Code(s): K80.20 - CALCULUS OF GALLBLADDER W/O CHOLECYSTITIS W/O OBSTRUCTION (4) HTN (hypertension) Code(s): I10 - ESSENTIAL (PRIMARY) HYPERTENSION Qualifiers: Hypertension type: essential hypertension Qualified Code(s): I10 - Essential (primary) hypertension (5) Hyperlipidemia Code(s): E78.5 - HYPERLIPIDEMIA, UNSPECIFIED (6) Leukocytosis Code(s): D72.829 - ELEVATED WHITE BLOOD CELL COUNT, UNSPECIFIED
--- NOTE | 2017-06-29 12:41 | PN ---
GI Progress Note Subjective: GI NOte: Pain has subsided. Hungry today. I reviewed the MRCP and see no CBD stone. - Objective Vital Signs: Vital Signs Temperature 98.8 F 06/29/17 05:00 Pulse Rate 78 06/29/17 05:00 Respiratory Rate 16 06/29/17 05:00 Blood Pressure 140/67 06/29/17 05:00 O2 Sat by Pulse Oximetry (%) 97 06/28/17 21:00 Constitutional: Calm Gastrointestinal Inspection: Yes: Distention ...Auscultate: Yes: Normoactive Bowel Sounds ...Palpate: Yes: Soft, Other (nontender) Labs: CBC, BMP 06/29/17 06:00 06/29/17 06:00 INR, PTT INR 1.24 (0.82-1.09) H 06/29/17 06:00 Problem List - Problems (1) Biliary acute pancreatitis Assessment/Plan: Resolving pancreatitis. Kyle appears to have passed his stone. Await official radiology reading but at this point will not schedule for ERCP. No radiologist is available to reliew the study but I have been told that one will call me back soon. Code(s): K85.10 - BILIARY ACUTE PANCREATITIS WITHOUT NECROSIS OR INFECTION (2) Cholelithiasis Code(s): K80.20 - CALCULUS OF GALLBLADDER W/O CHOLECYSTITIS W/O OBSTRUCTION (3) Colon polyps Code(s): K63.5 - POLYP OF COLON
--- NOTE | 2017-06-29 13:21 | PN ---
Progress Note, Physician Chief Complaint: Pt lying in bed in no acute distress. reports intermittent abd pain which is tolerable. tolerating a little of clear liquids but hasnt been drinking that much. denies any chest discomfort, n/v/d - Current Medication List Current Medications: Active Medications Albuterol Sulfate (Ventolin Hfa Inhaler -) 2 puff IH Q4H PRN PRN Reason: SHORTNESS OF BREATH Metronidazole (Flagyl 500mg Premixed Ivpb -) 500 mg in 100 mls @ 100 mls/hr IVPB Q8H-IV [facility] Last Admin: 06/29/17 09:45 Dose: 100 mls/hr Lactated Ringer's (Lactated Ringers Solution) 1,000 mls @ 150 mls/hr IV ASDIR [facility] Last Admin: 06/29/17 09:47 Dose: 150 mls/hr Levofloxacin (Levaquin 500 Mg Premixed Ivpb -) 500 mg in 100 mls @ 100 mls/hr IVPB DAILY [facility] Last Admin: 06/29/17 09:45 Dose: 100 mls/hr Morphine Sulfate (Morphine Sulfate) 2 mg IVPUSH Q4H PRN PRN Reason: PAIN LEVEL 6-10 Last Admin: 06/29/17 09:45 Dose: 2 mg Ondansetron HCl (Zofran Injection) 4 mg IVPUSH Q6H PRN PRN Reason: NAUSEA Potassium Phos/Sodium Phos (Phos-Nak Packet -) 1 packet PO TID [facility] Valsartan (Diovan -) 160 mg PO DAILY [facility] Last Admin: 06/29/17 09:45 Dose: 160 mg - Objective Vital Signs: Vital Signs Temperature 98.4 F 06/29/17 10:00 Pulse Rate 83 06/29/17 10:00 Respiratory Rate 18 06/29/17 10:00 Blood Pressure 144/72 06/29/17 10:00 O2 Sat by Pulse Oximetry (%) 98 06/29/17 10:00 Constitutional: Yes: Well Nourished, No Distress Cardiovascular: Yes: WNL, Regular Rate and Rhythm Respiratory: Yes: WNL, Regular, CTA Bilaterally. No: SOB, Tachypnea, Wheezes Gastrointestinal: Yes: WNL, Normal Bowel Sounds, Soft, Tenderness, Epigastrium ( improved). No: Distention, Vomiting Genitourinary: Yes: WNL Edema: No Neurological: Yes: WNL, Alert, Oriented Psychiatric: Yes: WNL, Alert, Oriented Labs: CBC, BMP 06/29/17 06:00 06/29/17 06:00 INR, PTT INR 1.24 (0.82-1.09) H 06/29/17 06:00 - ....Imaging MRI: Report Reviewed Problem List - Problems (1) Acute pancreatitis Code(s): K85.90 - ACUTE PANCREATITIS WITHOUT NECROSIS OR INFECTION, UNSP Qualifiers: Pancreatitis type: biliary Acute pancreatitis complication: unspecified Qualified Code(s): K85.10 - Biliary acute pancreatitis without necrosis or infection (2) Chest pain Code(s): R07.9 - CHEST PAIN, UNSPECIFIED Qualifiers: Chest pain type: other chest pain Qualified Code(s): R07.89 - Other chest pain; R07.8 - Other chest pain (3) Leukocytosis Code(s): D72.829 - ELEVATED WHITE BLOOD CELL COUNT, UNSPECIFIED (4) HTN (hypertension) Code(s): I10 - ESSENTIAL (PRIMARY) HYPERTENSION Qualifiers: Hypertension type: essential hypertension Qualified Code(s): I10 - Essential (primary) hypertension (5) Hyperlipidemia Code(s): E78.5 - HYPERLIPIDEMIA, UNSPECIFIED (6) ASHD (arteriosclerotic heart disease) Code(s): I25.10 - ATHSCL HEART DISEASE OF [place] CORONARY ARTERY W/O ANG PCTRS (7) Emphysema lung Code(s): J43.9 - EMPHYSEMA, UNSPECIFIED Qualifiers: Emphysema type: unspecified Qualified Code(s): J43.9 - Emphysema, unspecified Assessment/Plan (1) Acute pancreatitis Assessment/Plan: acute interstitial, lipase/amylase significantly improved lfts better, suspect passing of stone abd US with biliary sludge/stones abd CT consistent w/ pancreatitis MRCP- cholelithiasis, no cbd stone LR decreased 75mL/hr Levofloxacin and flagyl, will d/c tomorrow Clear liquids, advance per gi GI following Surgery consult pending Code(s): K85.90 - ACUTE PANCREATITIS WITHOUT NECROSIS OR INFECTION, UNSP Qualifiers: Pancreatitis type: biliary Acute pancreatitis complication: unspecified Qualified Code(s): K85.10 - Biliary acute pancreatitis without necrosis or infection (2) Chest pain Assessment/Plan: resolved Code(s): R07.9 - CHEST PAIN, UNSPECIFIED Qualifiers: Chest pain type: other chest pain Qualified Code(s): R07.89 - Other chest pain; R07.8 - Other chest pain (3) Leukocytosis Assessment/Plan: improved Code(s): D72.829 - ELEVATED WHITE BLOOD CELL COUNT, UNSPECIFIED (4) HTN (hypertension) Assessment/Plan: controlled hold hct in the setting of acute pancreatitis diovan ordered will monitor Code(s): I10 - ESSENTIAL (PRIMARY) HYPERTENSION Qualifiers: Hypertension type: essential hypertension Qualified Code(s): I10 - Essential (primary) hypertension (5) Hyperlipidemia Assessment/Plan: stable continue statin Code(s): E78.5 - HYPERLIPIDEMIA, UNSPECIFIED (6) ASHD (arteriosclerotic heart disease) Assessment/Plan: stable, s/p cabg(1995) continue plavix statin followed by cardiology outpt Code(s): I25.10 - ATHSCL HEART DISEASE OF [place] CORONARY ARTERY W/O ANG PCTRS (7) Emphysema lung Assessment/Plan: stable albuterol prn Code(s): J43.9 - EMPHYSEMA, UNSPECIFIED Qualifiers: Emphysema type: unspecified Qualified Code(s): J43.9 - Emphysema, unspecified Dispo: home
[2017-06-29] MEDS: POTASSIUM CHLORIDE ORAL LIQUID 20 MEQ/15 ML PO SCH ×2 (16:52→21:33)
[2017-06-29] MEDS: NAPH,MB-DB/K PH,MBDB POWDER PACKET PO SCH ×2 (16:52→21:33)
[2017-06-30] MEDS: NAPH,MB-DB/K PH,MBDB POWDER PACKET PO SCH ×3 (05:30→21:35)
[2017-06-30] MEDS ORDERED: PT OWN MED DRAWER 7, Y5N ONE (06:50)
[2017-06-30 07:33] LABS: BASO % 0.3 % (0-2.0); EOS % 0.3 % (0-4.5); HEMATOCRIT 34.5 % (35.4-49); HEMOGLOBIN 11.9 GM/dL (11.7-16.9); LYMPH % 6.5 % (8-40); MCH 31.3 pg (25.7-33.7); MCHC 34.6 g/dl (32.0-35.9); MEAN CELL VOLUME 90.4 fl (80-96); MEAN PLT VOLUME 8.6 fl (7.5-11.1); MONO % 4.1 % (3.8-10.2); NEUT % 88.8 % (42.8-82.8); PLATELET COUNT 135 K/MM3 (134-434); RBC 3.82 M/mm3 (4.00-5.60); RDW 14.4 % (11.9-15.9); WHITE BLOOD COUNT 10.6 K/mm3 (4.0-10.0)
[2017-06-30 08:00] LABS: ALBUMIN 3.2 g/dl (3.4-5.0); ALK PHOS 82 U/L (45-117); AMYLASE 77 U/L (25-115); ANION GAP 7 (8-16); BILIRUBIN,TOTAL 1.2 mg/dL (0.2-1.0); BLOOD UREA NITROGEN 16 mg/dL (7-18); CHLORIDE 109 mmol/L (98-107); CO2 27 mmol/L (21-32); CREATININE 0.9 mg/dL (0.7-1.3); GLUCOSE,RANDOM 99 mg/dL (74-106); POTASSIUM 4.1 mmol/L (3.5-5.1); SGOT/AST 42 U/L (15-37); SGPT/ALT 45 U/L (12-78); SODIUM 143 mmol/L (136-145); TOT PROT 6.4 g/dl (6.4-8.2)
[2017-06-30 08:29] LABS: LIPASE 458 U/L (73-393)
[2017-06-30] MEDS: VALSARTAN 160 MG TABLET (UD) PO SCH (09:28)
[2017-06-30] MEDS: POTASSIUM CHLORIDE ORAL LIQUID 20 MEQ/15 ML PO SCH (09:28)
[2017-06-30 11:04] LABS: PHOSPHOROUS 1.3 mg/dL (2.5-4.9)
--- NOTE | 2017-06-30 11:53 | CON.CARD ---
Cardiology Consult (text) - Consultation Consultation Note: cc: abd pain hpi: 77 m hx cad s/p remote [place] and cabg 1995, htn, hld, pad s/p right cea, here with abd pain. Found to have pancreatitis and surgery considering cholecystectomy. Pt has no cp, sob, palps, dizzy, loc, pnd, orthopnea, le edema. Sees me for cardio. pmh: per hpi psh: cabg social: no tob fam: nc ros: per hpi; no fever, cough, gib, heamturia, dysuria, andres, vision changes, muscle pain meds: Ambulatory Orders Albuterol Sulfate [Proair Hfa] 8.5 gm IH Q4HWA PRN 06/27/17 Atorvastatin Ca [Lipitor] 40 mg PO HS 06/27/17 Clopidogrel Bisulfate [Plavix] 75 mg PO DAILY 06/27/17 Valsartan/Hydrochlorothiazide [Valsartan-Hctz 160-25 mg Tab] 1 each PO DAILY 12/06 pe: Vital Signs Period Temp Pulse Resp BP Sys/Hancock Pulse Ox Last 24 Hr 98.2 F-99.1 F 70-78 18-20 126-157/62-75 96-96 nad no jvd rrr s1s2 no mrg cta bl nl eff aao3 no le e/c/c abd nd pos bs, mild tender no jaundice diaphroesis pos dp pt, no carotid bruits Laboratory Last Values WBC 10.6 K/mm3 (4.0-10.0) H 06/30/17 06:50 RBC 3.82 M/mm3 (4.00-5.60) L 06/30/17 06:50 Hgb 11.9 GM/dL (11.7-16.9) 06/30/17 06:50 Hct 34.5 % (35.4-49) L 06/30/17 06:50 MCV 90.4 fl (80-96) 06/30/17 06:50 MCH 31.3 pg (25.7-33.7) 06/30/17 06:50 MCHC 34.6 g/dl (32.0-35.9) 06/30/17 06:50 RDW 14.4 % (11.9-15.9) 06/30/17 06:50 Plt Count 135 K/MM3 (134-434) 06/30/17 06:50 MPV 8.6 fl (7.5-11.1) 06/30/17 06:50 Neutrophils % 88.8 % (42.8-82.8) H 06/30/17 06:50 Lymphocytes % 6.5 % (8-40) L 06/30/17 06:50 Monocytes % 4.1 % (3.8-10.2) 06/30/17 06:50 Eosinophils % 0.3 % (0-4.5) 06/30/17 06:50 Basophils % 0.3 % (0-2.0) 06/30/17 06:50 PT with INR 14.00 SEC (9.98-11.88) H 06/29/17 06:00 INR 1.24 (0.82-1.09) H 06/29/17 06:00 Sodium 143 mmol/L (136-145) 06/30/17 06:50 Potassium 4.1 mmol/L (3.5-5.1) D 06/30/17 06:50 Chloride 109 mmol/L (98-107) H 06/30/17 06:50 Carbon Dioxide 27 mmol/L (21-32) 06/30/17 06:50 Anion Gap 7 (8-16) L 06/30/17 06:50 BUN 16 mg/dL (7-18) 06/30/17 06:50 Creatinine 0.9 mg/dL (0.7-1.3) 06/30/17 06:50 Creat Clearance w eGFR > 60 (>60) 06/30/17 06:50 POC Glucometer 98 UNITS (80-120) 06/29/17 05:35 Random Glucose 99 mg/dL (74-106) 06/30/17 06:50 Lactic Acid 1.1 mmol/L (0.0-2.0) 06/30/17 06:50 Calcium 8.0 mg/dL (8.5-10.1) L 06/30/17 06:50 Phosphorus 1.3 mg/dL (2.5-4.9) L 06/30/17 06:50 Magnesium 2.1 mg/dL (1.8-2.4) D 06/29/17 06:00 Total Bilirubin 1.2 mg/dL (0.2-1.0) H 06/30/17 06:50 AST 42 U/L (15-37) H 06/30/17 06:50 ALT 45 U/L (12-78) 06/30/17 06:50 Alkaline Phosphatase 82 U/L (45-117) D 06/30/17 06:50 Creatine Kinase 259 IU/L (39-308) 06/27/17 12:00 Creatine Kinase Index 1.3 % (0.0-5.0) 06/27/17 12:00 CK-MB (CK-2) 3.372 ng/mL (0.5-3.6) 06/27/17 12:00 Troponin I 0.02 ng/ml (0.00-0.05) 06/28/17 07:00 C-Reactive Protein 15.2 MG/DL (0.00-0.3) H 06/30/17 06:50 Total Protein 6.4 g/dl (6.4-8.2) 06/30/17 06:50 Albumin 3.2 g/dl (3.4-5.0) L 06/30/17 06:50 Triglycerides 102 mg/dL (35-160) 06/28/17 07:00 Cholesterol 172 mg/dL (50-200) 06/28/17 07:00 Total LDL Cholesterol 98 mg/dL (5-100) 06/28/17 07:00 HDL Cholesterol 59 mg/dL (40-60) 06/28/17 07:00 Total Amylase 77 U/L (25-115) D 06/30/17 06:50 Lipase 458 U/L (73-393) H 06/30/17 06:50 ecg: sr, nl intervals, no ischemic changes cxr: no chf tele: sr echo 06/2015: nl lvef, AK of inferolat wall mid/base, hk of inf wall, nl rv, mild lae, mod mr, mild ar/pr/tr carotids 11/2014: patent neaem cea site, mild lica dz mibi 01/2012: no ischemia a/p: 77 m hx cad s/p remote [place] and cabg 1995, htn, hld, pad s/p right cea, here with abd pain. pancreatitis: -per gi, surgery -no unstable cardiac issues at present, preserved lvef, no cardiac contraindications to cholecystectomy. Can hold plavix temporarily if needed. cad: -stable, nl lvef -no angina, no signs acs -prior stress test w/o ischemia -cont home cardiac meds when stable, taking po htn: -cont diovan hld: -resume home statin when acute issues resolve
--- NOTE | 2017-06-30 12:00 | PN ---
Progress Note, Physician Chief Complaint: Pt sitting in chair in no acute distress. tolerating clear liquids. reports abd pain is better and agreeing to surgery for tuesday. denies any chest discomfort , n/v/d - Current Medication List Current Medications: Active Medications Albuterol Sulfate (Ventolin Hfa Inhaler -) 2 puff IH Q4H PRN PRN Reason: SHORTNESS OF BREATH Lactated Ringer's (Lactated Ringers Solution) 1,000 mls @ 75 mls/hr IV ASDIR [facility] Last Admin: 06/29/17 16:52 Dose: 75 mls/hr Morphine Sulfate (Morphine Sulfate) 2 mg IVPUSH Q4H PRN PRN Reason: PAIN LEVEL 6-10 Last Admin: 06/29/17 09:45 Dose: 2 mg Ondansetron HCl (Zofran Injection) 4 mg IVPUSH Q6H PRN PRN Reason: NAUSEA Potassium Phos/Sodium Phos (Phos-Nak Packet -) 1 packet PO TID [facility] Last Admin: 06/30/17 05:30 Dose: 1 packet Valsartan (Diovan -) 160 mg PO DAILY [facility] Last Admin: 06/30/17 09:28 Dose: 160 mg - Objective Vital Signs: Vital Signs Temperature 98.2 F 06/30/17 09:09 Pulse Rate 70 06/30/17 09:09 Respiratory Rate 18 06/30/17 09:09 Blood Pressure 150/70 06/30/17 09:09 O2 Sat by Pulse Oximetry (%) 96 06/30/17 09:00 Constitutional: Yes: Well Nourished, No Distress Cardiovascular: Yes: WNL, Regular Rate and Rhythm. No: Bruit, Gallop, Murmur Respiratory: Yes: WNL, Regular, CTA Bilaterally. No: Rhonchi, SOB, Tachypnea, Wheezes Gastrointestinal: Yes: WNL, Normal Bowel Sounds, Soft (nontender). No: Distention, Tenderness Genitourinary: Yes: WNL Edema: Yes Edema: LLE: Trace, RLE: Trace Neurological: Yes: WNL, Alert, Oriented Psychiatric: Yes: WNL, Alert, Oriented Labs: CBC, BMP 06/30/17 06:50 06/30/17 06:50 INR, PTT INR 1.24 (0.82-1.09) H 06/29/17 06:00 Problem List - Problems (1) Acute pancreatitis Code(s): K85.90 - ACUTE PANCREATITIS WITHOUT NECROSIS OR INFECTION, UNSP Qualifiers: Pancreatitis type: biliary Acute pancreatitis complication: unspecified Qualified Code(s): K85.10 - Biliary acute pancreatitis without necrosis or infection (2) Chest pain Code(s): R07.9 - CHEST PAIN, UNSPECIFIED Qualifiers: Chest pain type: other chest pain Qualified Code(s): R07.89 - Other chest pain; R07.8 - Other chest pain (3) Leukocytosis Code(s): D72.829 - ELEVATED WHITE BLOOD CELL COUNT, UNSPECIFIED (4) HTN (hypertension) Code(s): I10 - ESSENTIAL (PRIMARY) HYPERTENSION Qualifiers: Hypertension type: essential hypertension Qualified Code(s): I10 - Essential (primary) hypertension (5) Hyperlipidemia Code(s): E78.5 - HYPERLIPIDEMIA, UNSPECIFIED (6) ASHD (arteriosclerotic heart disease) Code(s): I25.10 - ATHSCL HEART DISEASE OF [place] CORONARY ARTERY W/O ANG PCTRS (7) Emphysema lung Code(s): J43.9 - EMPHYSEMA, UNSPECIFIED Qualifiers: Emphysema type: unspecified Qualified Code(s): J43.9 - Emphysema, unspecified (8) Cholecystectomy planned Code(s): [id number] - (9) Hypophosphatemia Code(s): E83.39 - OTHER DISORDERS OF PHOSPHORUS METABOLISM (10) Biliary acute pancreatitis Code(s): K85.10 - BILIARY ACUTE PANCREATITIS WITHOUT NECROSIS OR INFECTION Qualifiers: Acute pancreatitis complication: no infection or necrosis Qualified Code(s) : K85.10 - Biliary acute pancreatitis without necrosis or infection (11) Cholelithiasis Code(s): K80.20 - CALCULUS OF GALLBLADDER W/O CHOLECYSTITIS W/O OBSTRUCTION Qualifiers: Cholelithiasis location: gallbladder Cholecystitis presence: without cholecystitis Biliary obstruction: without biliary obstruction Qualified Code(s): K80.20 - Calculus of gallbladder without cholecystitis without obstruction (12) Hyperbilirubinemia Code(s): E80.6 - OTHER DISORDERS OF BILIRUBIN METABOLISM (13) Elevated C-reactive protein (CRP) Code(s): R79.82 - ELEVATED C-REACTIVE PROTEIN (CRP) Assessment/Plan (1) Cholecystectomy planned Assessment/Plan: LAP CHOLECYSTECTOMY ON 07/[address] Code(s): [id number] - (2) Acute pancreatitis Assessment/Plan: acute interstitial, lipase/amylase significantly improved lfts improved, suspect passing of stone abd US with biliary sludge/stones abd CT consistent w/ pancreatitis MRCP- cholelithiasis, no cbd stone D51/2ns 42ml/hr antibiotics d/c'd Clear liquids GI following Surgery following Code(s): K85.90 - ACUTE PANCREATITIS WITHOUT NECROSIS OR INFECTION, UNSP Qualifiers: Pancreatitis type: biliary Acute pancreatitis complication: unspecified Qualified Code(s): K85.10 - Biliary acute pancreatitis without necrosis or infection (3) Chest pain Assessment/Plan: resolved Code(s): R07.9 - CHEST PAIN, UNSPECIFIED Qualifiers: Chest pain type: other chest pain Qualified Code(s): R07.89 - Other chest pain; R07.8 - Other chest pain (4) Leukocytosis Assessment/Plan: resolved Code(s): D72.829 - ELEVATED WHITE BLOOD CELL COUNT, UNSPECIFIED (5) HTN (hypertension) Assessment/Plan: controlled hold hct in the setting of acute pancreatitis continue diovan will monitor Code(s): I10 - ESSENTIAL (PRIMARY) HYPERTENSION Qualifiers: Hypertension type: essential hypertension Qualified Code(s): I10 - Essential (primary) hypertension (6) Hyperlipidemia Assessment/Plan: stable hold statin for now Code(s): E78.5 - HYPERLIPIDEMIA, UNSPECIFIED (7) ASHD (arteriosclerotic heart disease) Assessment/Plan: stable, s/p cabg(1995) hold plavix statin followed by cardiology outpt Code(s): I25.10 - ATHSCL HEART DISEASE OF [place] CORONARY ARTERY W/O ANG PCTRS (8) Emphysema lung Assessment/Plan: stable albuterol prn Code(s): J43.9 - EMPHYSEMA, UNSPECIFIED Qualifiers: Emphysema type: unspecified Qualified Code(s): J43.9 - Emphysema, unspecified (9) Hypophosphatemia Assessment/Plan: phosphorous 1.3 continue phosnak monitor bmp Code(s): E83.39 - OTHER DISORDERS OF PHOSPHORUS METABOLISM Dispo: home
[2017-06-30] MEDS: DEXTROSE 5%-0.45% SALINE 1,000 ML IV SCH ×2 (13:35→15:41)
[2017-06-30] MEDS ORDERED: morphine SULFATE 4 MG/ML VIAL IVPUSH PRN (15:33)
[2017-06-30] MEDS ORDERED: ONDANSETRON 4 MG/2 ML VIAL IVPUSH PRN (15:33)
[2017-06-30] MEDS ORDERED: amLODIPine BESYLATE 5 MG TABLET (FP) PO ONE (20:15)
[2017-07-01] MEDS: NAPH,MB-DB/K PH,MBDB POWDER PACKET PO SCH ×3 (06:11→21:17)
--- NOTE | 2017-07-01 07:04 | PN ---
Progress Note, Physician Chief Complaint: abdominal pain History of Present Illness: 77 yo male PMH HTN, ASHD, [place]-s/p CABG(1995), Asthma, Emphysema who presents with new onset right upper abdominal pain x 1 day. Pt reports he had breakfast this am and started to get severe RUQ/epigastric abdominal pain radiating to back and right anterior chest/thorax. stable and improving since first evaluation. - Current Medication List Current Medications: Active Medications Albuterol Sulfate (Ventolin Hfa Inhaler -) 2 puff IH Q4H PRN PRN Reason: SHORTNESS OF BREATH Dextrose/Sodium Chloride (D5-1/2ns -) 1,000 mls @ 42 mls/hr IV ASDIR [facility] Last Admin: 06/30/17 15:41 Dose: 42 mls/hr Morphine Sulfate (Morphine Sulfate) 2 mg IVPUSH Q4H PRN PRN Reason: PAIN LEVEL 6-10 Ondansetron HCl (Zofran Injection) 4 mg IVPUSH Q6H PRN PRN Reason: NAUSEA Potassium Phos/Sodium Phos (Phos-Nak Packet -) 1 packet PO TID [facility] Last Admin: 07/01/17 06:11 Dose: 1 packet Valsartan (Diovan -) 160 mg PO DAILY [facility] - Objective Vital Signs: Vital Signs Temperature 98.5 F 07/01/17 02:00 Pulse Rate 78 07/01/17 02:00 Respiratory Rate 20 07/01/17 02:00 Blood Pressure 153/74 07/01/17 02:00 O2 Sat by Pulse Oximetry (%) 97 06/30/17 21:00 Constitutional: Yes: Well Nourished, No Distress, Calm Eyes: Yes: Conjunctiva Clear, EOM Intact HENT: Yes: Atraumatic, Normocephalic Neck: Yes: Supple, Trachea Midline Cardiovascular: Yes: Regular Rate and Rhythm, S1, S2 Respiratory: Yes: Regular, CTA Bilaterally Gastrointestinal: Yes: Normal Bowel Sounds, Soft, Distention, Tenderness, Tenderness, Epigastrium. No: Tenderness, Rebound ...Rectal Exam: Yes: Deferred Genitourinary: No: CVA Tenderness - Left, CVA Tenderness - Right Musculoskeletal: No: Muscle Pain, Muscle Weakness Extremities: No: Cool, Cyanosis Edema: No Peripheral Pulses WNL: Yes Peripheral Pulses: Left Doralis Pedis: 2+, Right Dorsalis Pedis: 2+ Neurological: Yes: Alert, Oriented Psychiatric: Yes: Alert, Oriented Labs: CBC, BMP 06/30/17 06:50 06/30/17 06:50 INR, PTT INR 1.24 (0.82-1.09) H 06/29/17 06:00 Problem List - Problems (1) Biliary acute pancreatitis Assessment/Plan: 77yo male MMP significant Cardiac history with gallstone pancreatitis, transient obstruction with gallstone IVF hydration Trend labs Hold plavix in anticipation of OR sunday 07/02 Cardiology clearence for general anesthesia and abdominal surgery Discussed with patient risks, benefits and alternatives of laparoscopic possible open cholecystectomy, including but not limited to bleeding, infection , injury to adjacent structures, leak or injury, intraabdominal abscess, need for further procedures, ; alternatives include antibiotics, delayed or no surgery - risks of this include failure of nonoperative therapy, perforation, sepsis, recurrence, . Informed consent placed on the chart Code(s): K85.10 - BILIARY ACUTE PANCREATITIS WITHOUT NECROSIS OR INFECTION Qualifiers: Acute pancreatitis complication: no infection or necrosis Qualified Code(s) : K85.10 - Biliary acute pancreatitis without necrosis or infection (2) ACS (acute coronary syndrome) Code(s): I24.9 - ACUTE ISCHEMIC HEART DISEASE, UNSPECIFIED (3) Cholelithiasis Code(s): K80.20 - CALCULUS OF GALLBLADDER W/O CHOLECYSTITIS W/O OBSTRUCTION Qualifiers: Cholelithiasis location: gallbladder Cholecystitis presence: without cholecystitis Biliary obstruction: without biliary obstruction Qualified Code(s): K80.20 - Calculus of gallbladder without cholecystitis without obstruction (4) HTN (hypertension) Code(s): I10 - ESSENTIAL (PRIMARY) HYPERTENSION Qualifiers: Hypertension type: essential hypertension Qualified Code(s): I10 - Essential (primary) hypertension (5) Hyperlipidemia Code(s): E78.5 - HYPERLIPIDEMIA, UNSPECIFIED (6) Leukocytosis Code(s): D72.829 - ELEVATED WHITE BLOOD CELL COUNT, UNSPECIFIED
[2017-07-01 08:17] LABS: BASO % 0.4 % (0-2.0); EOS % 0.7 % (0-4.5); HEMOGLOBIN 12.7 GM/dL (11.7-16.9); LYMPH % 7.9 % (8-40); MCHC 34.2 g/dl (32.0-35.9); MEAN CELL VOLUME 90.5 fl (80-96); MEAN PLT VOLUME 7.9 fl (7.5-11.1); MONO % 6.1 % (3.8-10.2); NEUT % 84.9 % (42.8-82.8); PLATELET COUNT 156 K/MM3 (134-434); RBC 4.09 M/mm3 (4.00-5.60); RDW 14.3 % (11.9-15.9); WHITE BLOOD COUNT 10.2 K/mm3 (4.0-10.0)
[2017-07-01 08:42] LABS: ALBUMIN 3.4 g/dl (3.4-5.0); AMYLASE 79 U/L (25-115); ANION GAP 10 (8-16); BLOOD UREA NITROGEN 12 mg/dL (7-18); CALCIUM 8.6 mg/dL (8.5-10.1); CHLORIDE 107 mmol/L (98-107); CO2 25 mmol/L (21-32); CREATININE 0.8 mg/dL (0.7-1.3); GLUCOSE,RANDOM 114 mg/dL (74-106); MAGNESIUM 2.3 mg/dL (1.8-2.4); POTASSIUM 3.8 mmol/L (3.5-5.1); SGOT/AST 25 U/L (15-37); SGPT/ALT 38 U/L (12-78); SODIUM 142 mmol/L (136-145); TOT PROT 6.7 g/dl (6.4-8.2)
[2017-07-01 08:43] LABS: ALK PHOS 74 U/L (45-117); BILIRUBIN,TOTAL 0.9 mg/dL (0.2-1.0)
[2017-07-01 08:46] LABS: LIPASE 712 U/L (73-393)
[2017-07-01] MEDS: VALSARTAN 160 MG TABLET (UD) PO SCH (09:28)
[2017-07-01] MEDS: ALBUTEROL SO4 18 GM HFA INHALER IH PRN ×2 (09:30→18:15)
[2017-07-01] MEDS ORDERED: PT OWN MED DRAWER 7, Y5N ONE ×2 (11:13→18:17)
[2017-07-01] MEDS: HYDROCHLOROTHIAZIDE 25 MG TABLET (FP) PO SCH (11:17)
[2017-07-01] MEDS ORDERED: ALBUTEROL SO4 0.5 % INH SOLN 2.5 MG/0.5 ML VIAL.NEB. NEB ONE (11:25)
--- NOTE | 2017-07-01 11:26 | PN ---
Progress Note, Physician Chief Complaint: Pt sitting in chair in no acute distress. tolerating clear liquids. reports abd pain is better and agreeing to surgery for tuesday. denies any chest discomfort , n/v/d - Current Medication List Current Medications: Active Medications Albuterol Sulfate (Ventolin Hfa Inhaler -) 2 puff IH Q4H PRN PRN Reason: SHORTNESS OF BREATH Last Admin: 07/01/17 09:30 Dose: 2 puff Albuterol Sulfate (Ventolin 0.5% -) 1 amp NEB ONCE ONE Stop: 07/01/17 11:26 Hydrochlorothiazide (Hctz -) 25 mg PO DAILY [facility] Last Admin: 07/01/17 11:17 Dose: 25 mg Dextrose/Sodium Chloride (D5-1/2ns -) 1,000 mls @ 42 mls/hr IV ASDIR [facility] Last Admin: 06/30/17 15:41 Dose: 42 mls/hr Morphine Sulfate (Morphine Sulfate) 2 mg IVPUSH Q4H PRN PRN Reason: PAIN LEVEL 6-10 Ondansetron HCl (Zofran Injection) 4 mg IVPUSH Q6H PRN PRN Reason: NAUSEA Potassium Phos/Sodium Phos (Phos-Nak Packet -) 1 packet PO TID [facility] Last Admin: 07/01/17 06:11 Dose: 1 packet Valsartan (Diovan -) 160 mg PO DAILY [facility] Last Admin: 07/01/17 09:28 Dose: 160 mg - Objective Vital Signs: Vital Signs Temperature 98.2 F 07/01/17 06:00 Pulse Rate 73 07/01/17 06:00 Respiratory Rate 20 07/01/17 06:00 Blood Pressure 142/69 07/01/17 06:00 O2 Sat by Pulse Oximetry (%) 97 06/30/17 21:00 Constitutional: Yes: Well Nourished, No Distress Cardiovascular: Yes: WNL, Regular Rate and Rhythm. No: Bruit, Gallop, Murmur Respiratory: Yes: Regular, Wheezes. No: Accessory Muscle Use, Rales, Rhonchi, SOB, Tachypnea Gastrointestinal: Yes: WNL, Normal Bowel Sounds, Soft. No: Distention, Tenderness Genitourinary: Yes: WNL Edema: Yes Edema: LLE: 1+, RLE: 1+ Neurological: Yes: WNL, Alert, Oriented Psychiatric: Yes: WNL, Alert, Oriented Labs: CBC, BMP 07/01/17 07:40 07/01/17 07:40 INR, PTT INR 1.24 (0.82-1.09) H 06/29/17 06:00 - ....Imaging Chest X-ray: Report Reviewed (no acute change) Problem List - Problems (1) Acute pancreatitis Code(s): K85.90 - ACUTE PANCREATITIS WITHOUT NECROSIS OR INFECTION, UNSP Qualifiers: Pancreatitis type: biliary Acute pancreatitis complication: unspecified Qualified Code(s): K85.10 - Biliary acute pancreatitis without necrosis or infection (2) Chest pain Code(s): R07.9 - CHEST PAIN, UNSPECIFIED Qualifiers: Chest pain type: other chest pain Qualified Code(s): R07.89 - Other chest pain; R07.8 - Other chest pain (3) Leukocytosis Code(s): D72.829 - ELEVATED WHITE BLOOD CELL COUNT, UNSPECIFIED (4) HTN (hypertension) Code(s): I10 - ESSENTIAL (PRIMARY) HYPERTENSION Qualifiers: Hypertension type: essential hypertension Qualified Code(s): I10 - Essential (primary) hypertension (5) Hyperlipidemia Code(s): E78.5 - HYPERLIPIDEMIA, UNSPECIFIED (6) ASHD (arteriosclerotic heart disease) Code(s): I25.10 - ATHSCL HEART DISEASE OF [place] CORONARY ARTERY W/O ANG PCTRS (7) Emphysema lung Code(s): J43.9 - EMPHYSEMA, UNSPECIFIED Qualifiers: Emphysema type: unspecified Qualified Code(s): J43.9 - Emphysema, unspecified (8) Cholecystectomy planned Code(s): [id number] - (9) Hypophosphatemia Code(s): E83.39 - OTHER DISORDERS OF PHOSPHORUS METABOLISM (10) Biliary acute pancreatitis Code(s): K85.10 - BILIARY ACUTE PANCREATITIS WITHOUT NECROSIS OR INFECTION Qualifiers: Acute pancreatitis complication: no infection or necrosis Qualified Code(s) : K85.10 - Biliary acute pancreatitis without necrosis or infection (11) Cholelithiasis Code(s): K80.20 - CALCULUS OF GALLBLADDER W/O CHOLECYSTITIS W/O OBSTRUCTION Qualifiers: Cholelithiasis location: gallbladder Cholecystitis presence: without cholecystitis Biliary obstruction: without biliary obstruction Qualified Code(s): K80.20 - Calculus of gallbladder without cholecystitis without obstruction (12) Hyperbilirubinemia Code(s): E80.6 - OTHER DISORDERS OF BILIRUBIN METABOLISM (13) Elevated C-reactive protein (CRP) Code(s): R79.82 - ELEVATED C-REACTIVE PROTEIN (CRP) Assessment/Plan (1) Cholecystectomy planned Assessment/Plan: LAP CHOLECYSTECTOMY ON 07/[address] Code(s): [id number] - (2) Acute pancreatitis Assessment/Plan: acute interstitial, lipase/amylase significantly improved lfts improved, suspect passing of stone abd US with biliary sludge/stones abd CT consistent w/ pancreatitis MRCP- cholelithiasis, no cbd stone D51/2ns 42ml/hr Clear liquids GI following Surgery following Code(s): K85.90 - ACUTE PANCREATITIS WITHOUT NECROSIS OR INFECTION, UNSP Qualifiers: Pancreatitis type: biliary Acute pancreatitis complication: unspecified Qualified Code(s): K85.10 - Biliary acute pancreatitis without necrosis or infection (3) Chest pain Assessment/Plan: resolved Code(s): R07.9 - CHEST PAIN, UNSPECIFIED Qualifiers: Chest pain type: other chest pain Qualified Code(s): R07.89 - Other chest pain; R07.8 - Other chest pain (4) Leukocytosis Assessment/Plan: resolved Code(s): D72.829 - ELEVATED WHITE BLOOD CELL COUNT, UNSPECIFIED (5) HTN (hypertension) Assessment/Plan: slightly elevated hct restarted continue diovan will monitor Code(s): I10 - ESSENTIAL (PRIMARY) HYPERTENSION Qualifiers: Hypertension type: essential hypertension Qualified Code(s): I10 - Essential (primary) hypertension (6) Hyperlipidemia Assessment/Plan: stable hold statin for now Code(s): E78.5 - HYPERLIPIDEMIA, UNSPECIFIED (7) ASHD (arteriosclerotic heart disease) Assessment/Plan: stable, s/p cabg(1995) hold plavix, statin followed by cardiology outpt Code(s): I25.10 - ATHSCL HEART DISEASE OF [place] CORONARY ARTERY W/O ANG PCTRS (8) Emphysema lung Assessment/Plan: wheezing on exam, denies sob albuterol prn chest xray neg will monitor Code(s): J43.9 - EMPHYSEMA, UNSPECIFIED Qualifiers: Emphysema type: unspecified Qualified Code(s): J43.9 - Emphysema, unspecified (9) Hypophosphatemia Assessment/Plan: phosphorous 1.3 continue phosnak monitor [facility] Code(s): E83.39 - OTHER DISORDERS OF PHOSPHORUS METABOLISM Dispo: home
--- NOTE | 2017-07-01 11:34 | PN ---
Progress Note (short form) - Note Progress Note: s: no cp sob palps dizzy o: Vital Signs Period Temp Pulse Resp BP Sys/Hancock Pulse Ox Last 24 Hr 97.7 F-98.5 F 73-81 20-20 142-180/65-79 97 nad no jvd rrr s1s2 no mrg cta bl nl eff aao3 trace le edema bl abd nd pos bs, mild tender no jaundice diaphroesis Current Medications Generic Name Dose Route Start Last Admin Trade Name Freq PRN Reason Stop Dose Admin Albuterol Sulfate 2 puff 06/30/17 15:33 07/01/17 09:30 Ventolin Hfa Inhaler - IH 2 puff Q4H PRN Administration SHORTNESS OF BREATH Hydrochlorothiazide 25 mg 07/01/17 10:00 07/01/17 11:17 Hctz - PO 25 mg DAILY [facility] Administration Dextrose/Sodium Chloride 1,000 mls @ 42 mls/hr 06/30/17 13:00 06/30/17 15:41 D5-1/2ns - IV 42 mls/hr ASDIR [facility] Administration Morphine Sulfate 2 mg 06/30/17 15:33 Morphine Sulfate IVPUSH Q4H PRN PAIN LEVEL 6-10 Ondansetron HCl 4 mg 06/30/17 15:33 Zofran Injection IVPUSH Q6H PRN NAUSEA Potassium Phos/Sodium Phos 1 packet 06/30/17 22:00 07/01/17 06:11 Phos-Nak Packet - PO 1 packet TID SIMONE Administration Valsartan 160 mg 07/01/17 10:00 07/01/17 09:28 Diovan - PO 160 mg DAILY [facility] Administration Laboratory Last Values WBC 10.2 K/mm3 (4.0-10.0) H 07/01/17 07:40 RBC 4.09 M/mm3 (4.00-5.60) 07/01/17 07:40 Hgb 12.7 GM/dL (11.7-16.9) 07/01/17 07:40 Hct 37.0 % (35.4-49) 07/01/17 07:40 MCV 90.5 fl (80-96) 07/01/17 07:40 MCH 31.0 pg (25.7-33.7) 07/01/17 07:40 MCHC 34.2 g/dl (32.0-35.9) 07/01/17 07:40 RDW 14.3 % (11.9-15.9) 07/01/17 07:40 Plt Count 156 K/MM3 (134-434) 07/01/17 07:40 MPV 7.9 fl (7.5-11.1) 07/01/17 07:40 Neutrophils % 84.9 % (42.8-82.8) H 07/01/17 07:40 Lymphocytes % 7.9 % (8-40) L D 07/01/17 07:40 Monocytes % 6.1 % (3.8-10.2) 07/01/17 07:40 Eosinophils % 0.7 % (0-4.5) D 07/01/17 07:40 Basophils % 0.4 % (0-2.0) 07/01/17 07:40 PT with INR 14.00 SEC (9.98-11.88) H 06/29/17 06:00 INR 1.24 (0.82-1.09) H 06/29/17 06:00 Sodium 142 mmol/L (136-145) 07/01/17 07:40 Potassium 3.8 mmol/L (3.5-5.1) 07/01/17 07:40 Chloride 107 mmol/L (98-107) 07/01/17 07:40 Carbon Dioxide 25 mmol/L (21-32) 07/01/17 07:40 Anion Gap 10 (8-16) 07/01/17 07:40 BUN 12 mg/dL (7-18) D 07/01/17 07:40 Creatinine 0.8 mg/dL (0.7-1.3) 07/01/17 07:40 Creat Clearance w eGFR > 60 (>60) 07/01/17 07:40 POC Glucometer 98 UNITS (80-120) 06/29/17 05:35 Random Glucose 114 mg/dL (74-106) H 07/01/17 07:40 Lactic Acid 1.1 mmol/L (0.0-2.0) 06/30/17 06:50 Calcium 8.6 mg/dL (8.5-10.1) 07/01/17 07:40 Phosphorus 2.0 mg/dL (2.5-4.9) L D 07/01/17 07:40 Magnesium 2.3 mg/dL (1.8-2.4) 07/01/17 07:40 Total Bilirubin 0.9 mg/dL (0.2-1.0) D 07/01/17 07:40 AST 25 U/L (15-37) D 07/01/17 07:40 ALT 38 U/L (12-78) 07/01/17 07:40 Alkaline Phosphatase 74 U/L (45-117) 07/01/17 07:40 Creatine Kinase 259 IU/L (39-308) 06/27/17 12:00 Creatine Kinase Index 1.3 % (0.0-5.0) 06/27/17 12:00 CK-MB (CK-2) 3.372 ng/mL (0.5-3.6) 06/27/17 12:00 Troponin I 0.02 ng/ml (0.00-0.05) 06/28/17 07:00 C-Reactive Protein 15.2 MG/DL (0.00-0.3) H 06/30/17 06:50 Total Protein 6.7 g/dl (6.4-8.2) 07/01/17 07:40 Albumin 3.4 g/dl (3.4-5.0) 07/01/17 07:40 Triglycerides 102 mg/dL (35-160) 06/28/17 07:00 Cholesterol 172 mg/dL (50-200) 06/28/17 07:00 Total LDL Cholesterol 98 mg/dL (5-100) 06/28/17 07:00 HDL Cholesterol 59 mg/dL (40-60) 06/28/17 07:00 Total Amylase 79 U/L (25-115) 07/01/17 07:40 Lipase 712 U/L (73-393) H 07/01/17 07:40 ecg: sr, nl intervals, no ischemic changes cxr: no chf echo 06/2015: nl lvef, AK of inferolat wall mid/base, hk of inf wall, nl rv, mild lae, mod mr, mild ar/pr/tr carotids 11/2014: patent naeem cea site, mild lica dz mibi 01/2012: no ischemia a/p: 77 m hx cad s/p remote [place] and cabg 1995, htn, hld, pad s/p right cea, here with abd pain. pancreatitis: -per gi, surgery -no unstable cardiac issues at present, preserved lvef, no cardiac contraindications to cholecystectomy. Can hold plavix temporarily if needed. cad: -stable, nl lvef -no angina, no signs acs -prior stress test w/o ischemia -cont home cardiac meds when stable, taking po htn: -cont diovan, will also had home hctz as well hld: -resume home statin when acute issues resolve
[2017-07-01] MEDS: DEXTROSE 5%-0.45% SALINE 1,000 ML IV SCH ×2 (13:00→17:55)
[2017-07-02] MEDS: NAPH,MB-DB/K PH,MBDB POWDER PACKET PO SCH ×3 (05:19→21:17)
[2017-07-02] MEDS ORDERED: PT OWN MED DRAWER 7, Y5N ONE ×2 (07:15→12:53)
[2017-07-02] MEDS: ALBUTEROL SO4 18 GM HFA INHALER IH PRN (07:16)
[2017-07-02 08:48] LABS: BASO % 0.3 % (0-2.0); EOS % 2.3 % (0-4.5); HEMATOCRIT 36.2 % (35.4-49); HEMOGLOBIN 12.4 GM/dL (11.7-16.9); LYMPH % 8.6 % (8-40); MCH 30.8 pg (25.7-33.7); MCHC 34.4 g/dl (32.0-35.9); MEAN CELL VOLUME 89.5 fl (80-96); MEAN PLT VOLUME 7.8 fl (7.5-11.1); MONO % 7.1 % (3.8-10.2); NEUT % 81.7 % (42.8-82.8); PLATELET COUNT 158 K/MM3 (134-434); RBC 4.04 M/mm3 (4.00-5.60); RDW 14.2 % (11.9-15.9); WHITE BLOOD COUNT 7.4 K/mm3 (4.0-10.0)
[2017-07-02 09:03] LABS: AMYLASE 77 U/L (25-115)
[2017-07-02 09:05] LABS: LIPASE 694 U/L (73-393)
--- NOTE | 2017-07-02 09:05 | PN ---
Progress Note (short form) - Note Progress Note: Surgery cancelled today because of wheezing, Please have pulmonary clear the patient we will try to proceed when cleared. Problem List - Problems (1) Biliary acute pancreatitis Code(s): K85.10 - BILIARY ACUTE PANCREATITIS WITHOUT NECROSIS OR INFECTION Qualifiers: Acute pancreatitis complication: no infection or necrosis Qualified Code(s) : K85.10 - Biliary acute pancreatitis without necrosis or infection (2) ACS (acute coronary syndrome) Code(s): I24.9 - ACUTE ISCHEMIC HEART DISEASE, UNSPECIFIED (3) Cholelithiasis Code(s): K80.20 - CALCULUS OF GALLBLADDER W/O CHOLECYSTITIS W/O OBSTRUCTION Qualifiers: Cholelithiasis location: gallbladder Cholecystitis presence: without cholecystitis Biliary obstruction: without biliary obstruction Qualified Code(s): K80.20 - Calculus of gallbladder without cholecystitis without obstruction (4) HTN (hypertension) Code(s): I10 - ESSENTIAL (PRIMARY) HYPERTENSION Qualifiers: Hypertension type: essential hypertension Qualified Code(s): I10 - Essential (primary) hypertension (5) Hyperlipidemia Code(s): E78.5 - HYPERLIPIDEMIA, UNSPECIFIED (6) Leukocytosis Code(s): D72.829 - ELEVATED WHITE BLOOD CELL COUNT, UNSPECIFIED
[2017-07-02 09:08] LABS: ALBUMIN 3.3 g/dl (3.4-5.0); ANION GAP 8 (8-16); BILIRUBIN,TOTAL 0.9 mg/dL (0.2-1.0); CALCIUM 8.5 mg/dL (8.5-10.1); CHLORIDE 104 mmol/L (98-107); CO2 29 mmol/L (21-32); CREATININE 0.9 mg/dL (0.7-1.3); GLUCOSE,RANDOM 112 mg/dL (74-106); MAGNESIUM 2.1 mg/dL (1.8-2.4); PHOSPHOROUS 2.9 mg/dL (2.5-4.9); POTASSIUM 3.6 mmol/L (3.5-5.1); SGOT/AST 19 U/L (15-37); SGPT/ALT 33 U/L (12-78); SODIUM 141 mmol/L (136-145); TOT PROT 6.4 g/dl (6.4-8.2)
[2017-07-02 09:09] LABS: ALK PHOS 67 U/L (45-117); BLOOD UREA NITROGEN 11 mg/dL (7-18)
[2017-07-02] MEDS: VALSARTAN 160 MG TABLET (UD) PO SCH (10:11)
[2017-07-02] MEDS: HYDROCHLOROTHIAZIDE 25 MG TABLET (FP) PO SCH (10:12)
[2017-07-02] MEDS: ALBUTEROL SO4 0.083% IH SOL 2.5 MG/3 ML VIAL.NEB. NEB SCH ×4 (10:25→20:50)
--- NOTE | 2017-07-02 10:40 | PN ---
Progress Note, Physician Chief Complaint: Pt sitting in chair in no acute distress. surgery cancelled today due to wheezing. Pt reports he feels same. Denies any chest pain, sob, n/v/d or weakness. - Current Medication List Current Medications: Active Medications Albuterol Sulfate (Ventolin Hfa Inhaler -) 2 puff IH Q4H PRN PRN Reason: SHORTNESS OF BREATH Last Admin: 07/02/17 07:16 Dose: 2 puff Albuterol Sulfate (Ventolin 0.083% Nebulizer Soln -) 1 amp NEB RQID [facility] Hydrochlorothiazide (Hctz -) 25 mg PO DAILY [facility] [place] Last Admin: 07/02/17 10:12 Dose: 25 mg Morphine Sulfate (Morphine Sulfate) 2 mg IVPUSH Q4H PRN PRN Reason: PAIN LEVEL 6-10 Ondansetron HCl (Zofran Injection) 4 mg IVPUSH Q6H PRN PRN Reason: NAUSEA Potassium Phos/Sodium Phos (Phos-Nak Packet -) 1 packet PO TID [facility] [place] Last Admin: 07/02/17 05:19 Dose: Not Given Valsartan (Diovan -) 160 mg PO DAILY [facility] [place] Last Admin: 07/02/17 10:11 Dose: 160 mg - Objective Vital Signs: Vital Signs Temperature 98.1 F 07/02/17 10:09 Pulse Rate 80 07/02/17 10:09 Respiratory Rate 24 07/02/17 10:09 Blood Pressure 153/71 07/02/17 10:09 O2 Sat by Pulse Oximetry (%) 98 07/01/17 21:00 Constitutional: Yes: Well Nourished, No Distress Cardiovascular: Yes: WNL, Regular Rate and Rhythm. No: Bruit, Murmur, Rub Respiratory: Yes: Regular, CTA Bilaterally, Wheezes (upper 1/3). No: Accessory Muscle Use, Rales, SOB, Tachypnea Gastrointestinal: Yes: WNL, Normal Bowel Sounds, Soft. No: Distention, Tenderness Genitourinary: Yes: WNL Edema: Yes Edema: LLE: 1+, RLE: 1+ Neurological: Yes: WNL, Alert, Oriented Psychiatric: Yes: WNL, Alert, Oriented Labs: CBC, BMP 07/02/17 07:51 07/02/17 07:51 INR, PTT INR 1.24 (0.82-1.09) H 06/29/17 06:00 Problem List - Problems (1) Acute pancreatitis Code(s): K85.90 - ACUTE PANCREATITIS WITHOUT NECROSIS OR INFECTION, UNSP Qualifiers: Pancreatitis type: biliary Acute pancreatitis complication: unspecified Qualified Code(s): K85.10 - Biliary acute pancreatitis without necrosis or infection (2) Chest pain Code(s): R07.9 - CHEST PAIN, UNSPECIFIED Qualifiers: Chest pain type: other chest pain Qualified Code(s): R07.89 - Other chest pain; R07.8 - Other chest pain (3) Leukocytosis Code(s): D72.829 - ELEVATED WHITE BLOOD CELL COUNT, UNSPECIFIED (4) HTN (hypertension) Code(s): I10 - ESSENTIAL (PRIMARY) HYPERTENSION Qualifiers: Hypertension type: essential hypertension Qualified Code(s): I10 - Essential (primary) hypertension (5) Hyperlipidemia Code(s): E78.5 - HYPERLIPIDEMIA, UNSPECIFIED (6) ASHD (arteriosclerotic heart disease) Code(s): I25.10 - ATHSCL HEART DISEASE OF [place] CORONARY ARTERY W/O ANG PCTRS (7) Emphysema lung Code(s): J43.9 - EMPHYSEMA, UNSPECIFIED Qualifiers: Emphysema type: unspecified Qualified Code(s): J43.9 - Emphysema, unspecified (8) Cholecystectomy planned Code(s): [id number] - (9) Hypophosphatemia Code(s): E83.39 - OTHER DISORDERS OF PHOSPHORUS METABOLISM (10) Biliary acute pancreatitis Code(s): K85.10 - BILIARY ACUTE PANCREATITIS WITHOUT NECROSIS OR INFECTION Qualifiers: Acute pancreatitis complication: no infection or necrosis Qualified Code(s) : K85.10 - Biliary acute pancreatitis without necrosis or infection (11) Cholelithiasis Code(s): K80.20 - CALCULUS OF GALLBLADDER W/O CHOLECYSTITIS W/O OBSTRUCTION Qualifiers: Cholelithiasis location: gallbladder Cholecystitis presence: without cholecystitis Biliary obstruction: without biliary obstruction Qualified Code(s): K80.20 - Calculus of gallbladder without cholecystitis without obstruction (12) Hyperbilirubinemia Code(s): E80.6 - OTHER DISORDERS OF BILIRUBIN METABOLISM (13) Elevated C-reactive protein (CRP) Code(s): R79.82 - ELEVATED C-REACTIVE PROTEIN (CRP) (14) Wheezing Code(s): R06.2 - WHEEZING (15) Pedal edema Code(s): R60.0 - LOCALIZED EDEMA Assessment/Plan (1) Cholecystectomy planned Assessment/Plan: LAP CHOLECYSTECTOMY ON HOLD until PULM clearance cardiology clearance in place Code(s): [id number] - (2) Acute pancreatitis Assessment/Plan: acute interstitial, lipase/amylase significantly improved lfts improved, suspect passing of stone abd US with biliary sludge/stones abd CT consistent w/ pancreatitis MRCP- cholelithiasis, no cbd stone IVF d/c'd Clear liquids GI following Surgery following Code(s): K85.90 - ACUTE PANCREATITIS WITHOUT NECROSIS OR INFECTION, UNSP Qualifiers: Pancreatitis type: biliary Acute pancreatitis complication: unspecified Qualified Code(s): K85.10 - Biliary acute pancreatitis without necrosis or infection (3) Chest pain Assessment/Plan: resolved Code(s): R07.9 - CHEST PAIN, UNSPECIFIED Qualifiers: Chest pain type: other chest pain Qualified Code(s): R07.89 - Other chest pain; R07.8 - Other chest pain (4) Leukocytosis Assessment/Plan: resolved Code(s): D72.829 - ELEVATED WHITE BLOOD CELL COUNT, UNSPECIFIED (5) HTN (hypertension) Assessment/Plan: slightly elevated hct restarted continue diovan will monitor Code(s): I10 - ESSENTIAL (PRIMARY) HYPERTENSION Qualifiers: Hypertension type: essential hypertension Qualified Code(s): I10 - Essential (primary) hypertension (6) Hyperlipidemia Assessment/Plan: stable hold statin for now Code(s): E78.5 - HYPERLIPIDEMIA, UNSPECIFIED (7) ASHD (arteriosclerotic heart disease) Assessment/Plan: stable, s/p cabg(1995) hold plavix, statin followed by cardiology outpt Code(s): I25.10 - ATHSCL HEART DISEASE OF [place] CORONARY ARTERY W/O ANG PCTRS (8) Emphysema lung Assessment/Plan: wheezing on exam, denies sob albuterol scheduled ordered chest xray from yesterday without acute findings ivf stopped pulm consulted will monitor Code(s): J43.9 - EMPHYSEMA, UNSPECIFIED Qualifiers: Emphysema type: unspecified Qualified Code(s): J43.9 - Emphysema, unspecified (9) Hypophosphatemia Assessment/Plan: improved Code(s): E83.39 - OTHER DISORDERS OF PHOSPHORUS METABOLISM (10) Wheezing Assessment/Plan: as above Code(s): R06.2 - WHEEZING (11) Pedal edema Assessment/Plan: lasix 20mg ivp x 1 Code(s): R60.0 - LOCALIZED EDEMA Dispo: home
[2017-07-02] MEDS ORDERED: FUROSEMIDE 40 MG/4 ML INJECTABLE VIAL IVPUSH ONE (13:15)
--- NOTE | 2017-07-02 16:21 | CON.PULM ---
Consult Consult Specialty:: PULM/CCM Referred by:: ROLAND Reason for Consultation:: SOB - History of Present Illness Chief Complaint: SOB History of Present Illness: 77 M, carries a diagnosis of COPD (stopped smoking in 1995 after his CABG), HTN , ASHD, [place], s/p CABG(1995), and (?) Asthma (most likely COPD). Admitted via the ER due to right upper abdominal pain x 1 day. Was scheduled for cholecystectomy and was canceled due to wheezing. Patient has never specifically been admitted due to COPD issues. CXR: No acute process. - History Source History Provided By: Patient Limitations to Obtaining History: No Limitations - Past Medical History Cardio/Vascular: Yes: CAD ([place] in 1995 with CABG and subsequent stents), HTN, Hyperlipdemia, [place] (1995 when he underwent a 3 vessel CABG at [facility]) Pulmonary: Yes: Asthma, COPD (emphysema) Gastrointestinal: Yes: Hemorrhoids (rubber band ligated 06/15/16), Other (colon polyps) Renal/: Yes: Cancer (prostate cancer treated with RT) - Past Surgical History Past Surgical History: Yes: CABG (1995), Carotid Endarterectomy (right side 2012 ), Colonoscopy, Hernia Repair (left inguinal) - Alcohol/Substance Use Hx Alcohol Use: Yes (wine/dinner) Number of Drinks Daily: 2 History of Substance Use: reports: None - Smoking History Smoking history: Former smoker Have you smoked in the past 12 months: No If you are a former smoker, when did you quit?: 1995 - Social History Usual Living Arrangement: With Spouse ADL: Independent Occupation: retired form [employer] History of Recent Travel: No Home Medications - Allergies Allergies/Adverse Reactions: Allergies Allergy/AdvReac Type Severity Reaction Status Date / Time No Known Drug Allergies Allergy Verified 06/27/17 11:17 - Home Medications Home Medications: Ambulatory Orders Albuterol Sulfate [Proair Hfa] 8.5 gm IH Q4HWA PRN 06/27/17 Atorvastatin Ca [Lipitor] 40 mg PO HS 06/27/17 Clopidogrel Bisulfate [Plavix] 75 mg PO DAILY 06/27/17 Valsartan/Hydrochlorothiazide [Valsartan-Hctz 160-25 mg Tab] 1 each PO DAILY 12/06 Family Disease History - Family Disease History Family Disease History: Diabetes: Sister, Heart Disease: Mother Review of Systems - Review of Systems Constitutional: denies: Chills, Fever, Malaise, Night Sweats, Weakness Eyes: reports: No Symptoms HENT: reports: No Symptoms Neck: reports: No Symptoms Cardiovascular: reports: Shortness of Breath. denies: Chest Pain, Edema, Palpitations Respiratory: reports: Cough, SOB, Wheezing. denies: Hemoptysis, Orthopnea, PND , Snoring, SOB on Exertion Gastrointestinal: reports: Abdominal Pain Genitourinary: reports: No Symptoms Breasts: reports: No Symptoms Reported Musculoskeletal: reports: No Symptoms Integumentary: reports: No Symptoms Neurological: reports: No Symptoms Endocrine: reports: No Symptoms Hematology/Lymphatic: reports: No Symptoms Psychiatric: reports: No Symptoms Physical Exam Vital Sings: Vital Signs Temperature 98.8 F 07/02/17 15:34 Pulse Rate 85 07/02/17 13:09 Respiratory Rate 24 07/02/17 13:09 Blood Pressure 142/67 07/02/17 13:09 O2 Sat by Pulse Oximetry (%) 95 07/02/17 10:00 Constitutional: Yes: No Distress, Calm Eyes: Yes: Conjunctiva Clear, EOM Intact HENT: Yes: Atraumatic, Normocephalic Neck: Yes: Supple, Trachea Midline Cardiovascular: Yes: Regular Rate and Rhythm Respiratory: Yes: Cough, On Nasal O2, Wheezes. No: Accessory Muscle Use, Rales , Rhonchi, Stridor, Tachypnea ...Inspection: Yes: WNL ...Clubbing: No Gastrointestinal: Yes: Normal Bowel Sounds, Soft Renal/: Yes: WNL Breast(s): Yes: WNL Musculoskeletal: Yes: WNL Extremities: Yes: WNL Edema: No Peripheral Pulses WNL: Yes Integumentary: Yes: WNL Neurological: Yes: WNL, Alert, Oriented ...Motor Strength: WNL Psychiatric: Yes: WNL, Alert, Oriented Labs: CBC, BMP 07/02/17 07:51 07/02/17 07:51 Imaging - Results Chest X-ray: Report Reviewed, Image Reviewed Problem List - Problems (1) ASHD (arteriosclerotic heart disease) Code(s): I25.10 - ATHSCL HEART DISEASE OF [place] CORONARY ARTERY W/O ANG PCTRS (2) Biliary acute pancreatitis Code(s): K85.10 - BILIARY ACUTE PANCREATITIS WITHOUT NECROSIS OR INFECTION Qualifiers: Acute pancreatitis complication: no infection or necrosis Qualified Code(s) : K85.10 - Biliary acute pancreatitis without necrosis or infection (3) Cholecystectomy planned Code(s): [id number] - (4) Cholelithiasis Code(s): K80.20 - CALCULUS OF GALLBLADDER W/O CHOLECYSTITIS W/O OBSTRUCTION Qualifiers: Cholelithiasis location: gallbladder Cholecystitis presence: without cholecystitis Biliary obstruction: without biliary obstruction Qualified Code(s): K80.20 - Calculus of gallbladder without cholecystitis without obstruction (5) Colon polyps Code(s): K63.5 - POLYP OF COLON (6) Emphysema lung Code(s): J43.9 - EMPHYSEMA, UNSPECIFIED Qualifiers: Emphysema type: unspecified Qualified Code(s): J43.9 - Emphysema, unspecified (7) HTN (hypertension) Code(s): I10 - ESSENTIAL (PRIMARY) HYPERTENSION Qualifiers: Hypertension type: essential hypertension Qualified Code(s): I10 - Essential (primary) hypertension (8) Hyperbilirubinemia Code(s): E80.6 - OTHER DISORDERS OF BILIRUBIN METABOLISM (9) Hyperlipidemia Code(s): E78.5 - HYPERLIPIDEMIA, UNSPECIFIED (10) Wheezing Code(s): R06.2 - WHEEZING Assessment/Plan Medrol BD TX O2 as needed No ABX indicated Will follow Dr L[place]
[2017-07-02] MEDS: methylPREDNISolone NA SUCC 40 MG/1 ML VIAL IVPUSH SCH (17:37)
[2017-07-03] MEDS: methylPREDNISolone NA SUCC 40 MG/1 ML VIAL IVPUSH SCH ×3 (01:18→17:20)
[2017-07-03] MEDS: NAPH,MB-DB/K PH,MBDB POWDER PACKET PO SCH (05:52)
[2017-07-03] MEDS: ALBUTEROL SO4 0.083% IH SOL 2.5 MG/3 ML VIAL.NEB. NEB SCH ×4 (08:10→21:06)
[2017-07-03 08:46] LABS: BASO % 0.1 % (0-2.0); EOS % 0.1 % (0-4.5); HEMATOCRIT 40.2 % (35.4-49); HEMOGLOBIN 13.9 GM/dL (11.7-16.9); LYMPH % 8.3 % (8-40); MCH 31.1 pg (25.7-33.7); MCHC 34.5 g/dl (32.0-35.9); MEAN CELL VOLUME 90.2 fl (80-96); MEAN PLT VOLUME 7.7 fl (7.5-11.1); MONO % 2.1 % (3.8-10.2); NEUT % 89.4 % (42.8-82.8); PLATELET COUNT 194 K/MM3 (134-434); RBC 4.46 M/mm3 (4.00-5.60); RDW 14.2 % (11.9-15.9); WHITE BLOOD COUNT 6.1 K/mm3 (4.0-10.0)
[2017-07-03 09:06] LABS: AMYLASE 64 U/L (25-115)
[2017-07-03 09:07] LABS: ALBUMIN 3.3 g/dl (3.4-5.0); ANION GAP 8 (8-16); BLOOD UREA NITROGEN 18 mg/dL (7-18); CALCIUM 9.1 mg/dL (8.5-10.1); CHLORIDE 104 mmol/L (98-107); CO2 30 mmol/L (21-32); CREATININE 0.9 mg/dL (0.7-1.3); GLUCOSE,RANDOM 163 mg/dL (74-106); MAGNESIUM 2.1 mg/dL (1.8-2.4); PHOSPHOROUS 5.1 mg/dL (2.5-4.9); POTASSIUM 4.1 mmol/L (3.5-5.1); SGOT/AST 22 U/L (15-37); SGPT/ALT 36 U/L (12-78); SODIUM 142 mmol/L (136-145)
[2017-07-03 09:09] LABS: LIPASE 439 U/L (73-393)
[2017-07-03 09:11] LABS: ALK PHOS 73 U/L (45-117); BILIRUBIN,TOTAL 0.5 mg/dL (0.2-1.0)
[2017-07-03] MEDS: VALSARTAN 160 MG TABLET (UD) PO SCH (10:38)
[2017-07-03] MEDS: HYDROCHLOROTHIAZIDE 25 MG TABLET (FP) PO SCH (10:39)
--- NOTE | 2017-07-03 12:11 | PN ---
Progress Note, Physician Chief Complaint: Pt sitting in chair in no acute distress. surgery on hold until pulm clearance. Pt reports he feels good, breathing without any difficulty. Denies any chest pain, sob, n/v/d or weakness. - Current Medication List Current Medications: Active Medications Albuterol Sulfate (Ventolin Hfa Inhaler -) 2 puff IH Q4H PRN PRN Reason: SHORTNESS OF BREATH Last Admin: 07/02/17 07:16 Dose: 2 puff Albuterol Sulfate (Ventolin 0.083% Nebulizer Soln -) 1 amp NEB RQID [facility] Last Admin: 07/03/17 08:10 Dose: 1 amp Hydrochlorothiazide (Hctz -) 25 mg PO DAILY [facility] Last Admin: 07/03/17 10:39 Dose: 25 mg Methylprednisolone Sodium Succinate (Solu-Medrol -) 40 mg IVPUSH Q8H-IV [facility] Last Admin: 07/03/17 10:38 Dose: 40 mg Morphine Sulfate (Morphine Sulfate) 2 mg IVPUSH Q4H PRN PRN Reason: PAIN LEVEL 6-10 Ondansetron HCl (Zofran Injection) 4 mg IVPUSH Q6H PRN PRN Reason: NAUSEA Valsartan (Diovan -) 160 mg PO DAILY [facility] Last Admin: 07/03/17 10:38 Dose: 160 mg - Objective Vital Signs: Vital Signs Temperature 98.1 F 07/03/17 09:12 Pulse Rate 82 07/03/17 09:12 Respiratory Rate 20 07/03/17 09:12 Blood Pressure 142/83 07/03/17 09:12 O2 Sat by Pulse Oximetry (%) 98 07/03/17 09:00 Constitutional: Yes: Well Nourished, No Distress Cardiovascular: Yes: WNL, Regular Rate and Rhythm. No: Bruit, Murmur, Rub Respiratory: Yes: Regular, Wheezes. No: Accessory Muscle Use, SOB, Tachypnea Gastrointestinal: Yes: WNL, Normal Bowel Sounds, Soft. No: Distention, Tenderness Genitourinary: Yes: WNL Edema: Yes Edema: LLE: 1+, RLE: 1+ Neurological: Yes: WNL, Alert, Oriented Psychiatric: Yes: WNL, Alert, Oriented Labs: CBC, BMP 07/03/17 07:59 07/03/17 07:59 INR, PTT INR 1.24 (0.82-1.09) H 06/29/17 06:00 Problem List - Problems (1) Acute pancreatitis Code(s): K85.90 - ACUTE PANCREATITIS WITHOUT NECROSIS OR INFECTION, UNSP Qualifiers: Pancreatitis type: biliary Acute pancreatitis complication: unspecified Qualified Code(s): K85.10 - Biliary acute pancreatitis without necrosis or infection (2) Chest pain Code(s): R07.9 - CHEST PAIN, UNSPECIFIED Qualifiers: Chest pain type: other chest pain Qualified Code(s): R07.89 - Other chest pain; R07.8 - Other chest pain (3) Leukocytosis Code(s): D72.829 - ELEVATED WHITE BLOOD CELL COUNT, UNSPECIFIED (4) HTN (hypertension) Code(s): I10 - ESSENTIAL (PRIMARY) HYPERTENSION Qualifiers: Hypertension type: essential hypertension Qualified Code(s): I10 - Essential (primary) hypertension (5) Hyperlipidemia Code(s): E78.5 - HYPERLIPIDEMIA, UNSPECIFIED (6) ASHD (arteriosclerotic heart disease) Code(s): I25.10 - ATHSCL HEART DISEASE OF [place] CORONARY ARTERY W/O ANG PCTRS (7) Emphysema lung Code(s): J43.9 - EMPHYSEMA, UNSPECIFIED Qualifiers: Emphysema type: unspecified Qualified Code(s): J43.9 - Emphysema, unspecified (8) Cholecystectomy planned Code(s): [id number] - (9) Hypophosphatemia Code(s): E83.39 - OTHER DISORDERS OF PHOSPHORUS METABOLISM (10) Biliary acute pancreatitis Code(s): K85.10 - BILIARY ACUTE PANCREATITIS WITHOUT NECROSIS OR INFECTION Qualifiers: Acute pancreatitis complication: no infection or necrosis Qualified Code(s) : K85.10 - Biliary acute pancreatitis without necrosis or infection (11) Cholelithiasis Code(s): K80.20 - CALCULUS OF GALLBLADDER W/O CHOLECYSTITIS W/O OBSTRUCTION Qualifiers: Cholelithiasis location: gallbladder Cholecystitis presence: without cholecystitis Biliary obstruction: without biliary obstruction Qualified Code(s): K80.20 - Calculus of gallbladder without cholecystitis without obstruction (12) Hyperbilirubinemia Code(s): E80.6 - OTHER DISORDERS OF BILIRUBIN METABOLISM (13) Elevated C-reactive protein (CRP) Code(s): R79.82 - ELEVATED C-REACTIVE PROTEIN (CRP) (14) Wheezing Code(s): R06.2 - WHEEZING (15) Pedal edema Code(s): R60.0 - LOCALIZED EDEMA Assessment/Plan (1) Cholecystectomy planned Assessment/Plan: LAP CHOLECYSTECTOMY ON HOLD until PULM clearance cardiology clearance in place Code(s): [id number] - (2) Acute pancreatitis Assessment/Plan: acute interstitial, lipase/amylase significantly improved lfts improved, suspect passing of stone abd US with biliary sludge/stones abd CT consistent w/ pancreatitis MRCP- cholelithiasis, no cbd stone GI following Surgery following Code(s): K85.90 - ACUTE PANCREATITIS WITHOUT NECROSIS OR INFECTION, UNSP Qualifiers: Pancreatitis type: biliary Acute pancreatitis complication: unspecified Qualified Code(s): K85.10 - Biliary acute pancreatitis without necrosis or infection (3) Chest pain Assessment/Plan: resolved Code(s): R07.9 - CHEST PAIN, UNSPECIFIED Qualifiers: Chest pain type: other chest pain Qualified Code(s): R07.89 - Other chest pain; R07.8 - Other chest pain (4) Leukocytosis Assessment/Plan: resolved Code(s): D72.829 - ELEVATED WHITE BLOOD CELL COUNT, UNSPECIFIED (5) HTN (hypertension) Assessment/Plan: controlled continue diovan/hct will monitor Code(s): I10 - ESSENTIAL (PRIMARY) HYPERTENSION Qualifiers: Hypertension type: essential hypertension Qualified Code(s): I10 - Essential (primary) hypertension (6) Hyperlipidemia Assessment/Plan: stable hold statin for now Code(s): E78.5 - HYPERLIPIDEMIA, UNSPECIFIED (7) ASHD (arteriosclerotic heart disease) Assessment/Plan: stable, s/p cabg(1995) hold plavix, statin followed by cardiology outpt Code(s): I25.10 - ATHSCL HEART DISEASE OF [place] CORONARY ARTERY W/O ANG PCTRS (8) Emphysema lung Assessment/Plan: wheezing on exam, denies sob albuterol scheduled chest xray from yesterday without acute findings medrol per pulm pulm following will monitor Code(s): J43.9 - EMPHYSEMA, UNSPECIFIED Qualifiers: Emphysema type: unspecified Qualified Code(s): J43.9 - Emphysema, unspecified (9) Hypophosphatemia Assessment/Plan: resolved Code(s): E83.39 - OTHER DISORDERS OF PHOSPHORUS METABOLISM (10) Wheezing Assessment/Plan: as above Code(s): R06.2 - WHEEZING (11) Pedal edema Assessment/Plan: improving Code(s): R60.0 - LOCALIZED EDEMA
--- NOTE | 2017-07-03 13:00 | PN ---
Progress Note (short form) - Note Progress Note: OOB to chair. Feels better. Saturating 98% on RA. Constitutional: Yes: No Distress Eyes: Yes: Conjunctiva Clear, EOM Intact HENT: Yes: Atraumatic, Normocephalic Neck: Yes: Supple, Trachea Midline Cardiovascular: Yes: Regular Rate and Rhythm Respiratory: Yes: Cough, RA, NO wheezes. No: Accessory Muscle Use, Rales, Rhonchi, Stridor, Tachypnea ...Inspection: Yes: WNL ...Clubbing: No Gastrointestinal: Yes: Normal Bowel Sounds, Soft Renal/: Yes: WNL Breast(s): Yes: WNL Musculoskeletal: Yes: WNL Extremities: Yes: WNL Edema: No Peripheral Pulses WNL: Yes Integumentary: Yes: WNL Neurological: Yes: WNL, Alert, Oriented ...Motor Strength: WNL Psychiatric: Yes: WNL, Alert, Oriented Labs: Laboratory Results - last 24 hr 07/03/17 07/03/17 07/03/17 07:59 07:59 07:59 WBC 6.1 RBC 4.46 Hgb 13.9 D Hct 40.2 MCV 90.2 MCH 31.1 MCHC 34.5 RDW 14.2 Plt Count 194 D MPV 7.7 Neutrophils % 89.4 H Lymphocytes % 8.3 Monocytes % 2.1 L Eosinophils % 0.1 D Basophils % 0.1 Sodium 142 Potassium 4.1 Chloride 104 Carbon Dioxide 30 Anion Gap 8 BUN 18 D Creatinine 0.9 Creat Clearance w eGFR > 60 Random Glucose 163 H D Calcium 9.1 Phosphorus 5.1 H D Magnesium 2.1 Total Bilirubin 0.5 D AST 22 ALT 36 Alkaline Phosphatase 73 Total Protein 7.0 Albumin 3.3 L Total Amylase 64 Lipase 439 H Problem List - Problems (1) ASHD (arteriosclerotic heart disease) Code(s): I25.10 - ATHSCL HEART DISEASE OF [place] CORONARY ARTERY W/O ANG PCTRS (2) Biliary acute pancreatitis Code(s): K85.10 - BILIARY ACUTE PANCREATITIS WITHOUT NECROSIS OR INFECTION Qualifiers: Acute pancreatitis complication: no infection or necrosis Qualified Code(s) : K85.10 - Biliary acute pancreatitis without necrosis or infection (3) Cholecystectomy planned Code(s): [id number] - (4) Cholelithiasis Code(s): K80.20 - CALCULUS OF GALLBLADDER W/O CHOLECYSTITIS W/O OBSTRUCTION Qualifiers: Cholelithiasis location: gallbladder Cholecystitis presence: without cholecystitis Biliary obstruction: without biliary obstruction Qualified Code(s): K80.20 - Calculus of gallbladder without cholecystitis without obstruction (5) Colon polyps Code(s): K63.5 - POLYP OF COLON (6) Emphysema lung Code(s): J43.9 - EMPHYSEMA, UNSPECIFIED Qualifiers: Emphysema type: unspecified Qualified Code(s): J43.9 - Emphysema, unspecified (7) HTN (hypertension) Code(s): I10 - ESSENTIAL (PRIMARY) HYPERTENSION Qualifiers: Hypertension type: essential hypertension Qualified Code(s): I10 - Essential (primary) hypertension (8) Hyperbilirubinemia Code(s): E80.6 - OTHER DISORDERS OF BILIRUBIN METABOLISM (9) Hyperlipidemia Code(s): E78.5 - HYPERLIPIDEMIA, UNSPECIFIED (10) Wheezing Code(s): R06.2 - WHEEZING Assessment/Plan Medrol BD TX O2 as needed No ABX indicated If he remains stable, there would be no Pulmonary contraindication for OR tomorrow Dr L[place] Problem List - Problems (1) ASHD (arteriosclerotic heart disease) Code(s): I25.10 - ATHSCL HEART DISEASE OF [place] CORONARY ARTERY W/O ANG PCTRS (2) Biliary acute pancreatitis Code(s): K85.10 - BILIARY ACUTE PANCREATITIS WITHOUT NECROSIS OR INFECTION Qualifiers: Acute pancreatitis complication: no infection or necrosis Qualified Code(s) : K85.10 - Biliary acute pancreatitis without necrosis or infection (3) Cholecystectomy planned Code(s): [id number] - (4) Cholelithiasis Code(s): K80.20 - CALCULUS OF GALLBLADDER W/O CHOLECYSTITIS W/O OBSTRUCTION Qualifiers: Cholelithiasis location: gallbladder Cholecystitis presence: without cholecystitis Biliary obstruction: without biliary obstruction Qualified Code(s): K80.20 - Calculus of gallbladder without cholecystitis without obstruction (5) Colon polyps Code(s): K63.5 - POLYP OF COLON (6) Emphysema lung Code(s): J43.9 - EMPHYSEMA, UNSPECIFIED Qualifiers: Emphysema type: unspecified Qualified Code(s): J43.9 - Emphysema, unspecified (7) HTN (hypertension) Code(s): I10 - ESSENTIAL (PRIMARY) HYPERTENSION Qualifiers: Hypertension type: essential hypertension Qualified Code(s): I10 - Essential (primary) hypertension (8) Hyperbilirubinemia Code(s): E80.6 - OTHER DISORDERS OF BILIRUBIN METABOLISM (9) Hyperlipidemia Code(s): E78.5 - HYPERLIPIDEMIA, UNSPECIFIED (10) Wheezing Code(s): R06.2 - WHEEZING
--- NOTE | 2017-07-03 16:27 | PN ---
Progress Note, Physician Chief Complaint: abdominal pain History of Present Illness: 77 yo male PMH HTN, ASHD, [place]-s/p CABG(1995), Asthma, Emphysema who presents with new onset right upper abdominal pain x 1 day. Planned Cholecystectomy was delayed due to poor respiratory status Tuesday. Seen by pulmonary and stable overnight. - Current Medication List Current Medications: Active Medications Albuterol Sulfate (Ventolin Hfa Inhaler -) 2 puff IH Q4H PRN PRN Reason: SHORTNESS OF BREATH Last Admin: 07/02/17 07:16 Dose: 2 puff Albuterol Sulfate (Ventolin 0.083% Nebulizer Soln -) 1 amp NEB RQID [facility] Last Admin: 07/03/17 11:40 Dose: 1 amp Hydrochlorothiazide (Hctz -) 25 mg PO DAILY [facility] Last Admin: 07/03/17 10:39 Dose: 25 mg Potassium Chloride/Dextrose/Sod Cl (D5-1/2ns+20 Meq Kcl -) 20 meq in 1,000 mls @ 42 mls/hr IV ASDIR [facility] Methylprednisolone Sodium Succinate (Solu-Medrol -) 40 mg IVPUSH Q8H-IV [facility] Last Admin: 07/03/17 10:38 Dose: 40 mg Ondansetron HCl (Zofran Injection) 4 mg IVPUSH Q6H PRN PRN Reason: NAUSEA Valsartan (Diovan -) 160 mg PO DAILY [facility] Last Admin: 07/03/17 10:38 Dose: 160 mg - Objective Vital Signs: Vital Signs Temperature 97.6 F 07/03/17 14:49 Pulse Rate 99 H 07/03/17 14:49 Respiratory Rate 20 07/03/17 14:49 Blood Pressure 151/61 07/03/17 14:49 O2 Sat by Pulse Oximetry (%) 98 07/03/17 09:00 Vital Signs Period Temp Pulse Resp BP Sys/[place] Pulse Ox Last 24 Hr 97.5 F-98.5 F 74-99 20-20 132-152/59-83 95-98 Constitutional: Yes: No Distress, Calm Eyes: Yes: Conjunctiva Clear, EOM Intact HENT: Yes: Atraumatic, Normocephalic Neck: Yes: Supple, Trachea Midline Cardiovascular: Yes: Regular Rate and Rhythm, S1, S2 Respiratory: Yes: Regular, CTA Bilaterally Gastrointestinal: Yes: Normal Bowel Sounds, Soft, Tenderness Genitourinary: No: CVA Tenderness - Left, CVA Tenderness - Right Extremities: No: Cool, Cyanosis Neurological: Yes: Alert, Oriented Psychiatric: Yes: Alert, Oriented Labs: CBC, BMP 07/03/17 07:59 07/03/17 07:59 INR, PTT INR 1.24 (0.82-1.09) H 06/29/17 06:00 Problem List - Problems (1) Biliary acute pancreatitis Assessment/Plan: 77yo male MMP significant Cardiac history with gallstone pancreatitis, transient obstruction with gallstone IVF hydration Trend labs OR Tuesday 07/04 Cardiology clearence for general anesthesia and abdominal surgery Discussed with patient risks, benefits and alternatives of laparoscopic possible open cholecystectomy, including but not limited to bleeding, infection , injury to adjacent structures, leak or injury, intraabdominal abscess, need for further procedures, ; alternatives include antibiotics, delayed or no surgery - risks of this include failure of nonoperative therapy, perforation, sepsis, recurrence, . Informed consent placed on the chart Code(s): K85.10 - BILIARY ACUTE PANCREATITIS WITHOUT NECROSIS OR INFECTION Qualifiers: Acute pancreatitis complication: no infection or necrosis Qualified Code(s) : K85.10 - Biliary acute pancreatitis without necrosis or infection (2) ACS (acute coronary syndrome) Code(s): I24.9 - ACUTE ISCHEMIC HEART DISEASE, UNSPECIFIED (3) Cholelithiasis Code(s): K80.20 - CALCULUS OF GALLBLADDER W/O CHOLECYSTITIS W/O OBSTRUCTION Qualifiers: Cholelithiasis location: gallbladder Cholecystitis presence: without cholecystitis Biliary obstruction: without biliary obstruction Qualified Code(s): K80.20 - Calculus of gallbladder without cholecystitis without obstruction (4) HTN (hypertension) Code(s): I10 - ESSENTIAL (PRIMARY) HYPERTENSION Qualifiers: Hypertension type: essential hypertension Qualified Code(s): I10 - Essential (primary) hypertension (5) Hyperlipidemia Code(s): E78.5 - HYPERLIPIDEMIA, UNSPECIFIED (6) Leukocytosis Code(s): D72.829 - ELEVATED WHITE BLOOD CELL COUNT, UNSPECIFIED
[2017-07-04] MEDS ORDERED: D5-1/2NS+20 MEQ KCL - 20 MEQ/1,000 ML INFUS.BAG IV SCH ×2 (00:01→18:02)
[2017-07-04] MEDS: methylPREDNISolone NA SUCC 40 MG/1 ML VIAL IVPUSH SCH ×3 (02:23→18:46)
[2017-07-04 07:53] LABS: BASO % 0.1 % (0-2.0); HEMATOCRIT 36.1 % (35.4-49); HEMOGLOBIN 12.4 GM/dL (11.7-16.9); LYMPH % 4.5 % (8-40); MCH 30.8 pg (25.7-33.7); MCHC 34.3 g/dl (32.0-35.9); MEAN CELL VOLUME 89.8 fl (80-96); MEAN PLT VOLUME 7.7 fl (7.5-11.1); MONO % 3.3 % (3.8-10.2); NEUT % 92.1 % (42.8-82.8); PLATELET COUNT 216 K/MM3 (134-434); RBC 4.03 M/mm3 (4.00-5.60); WHITE BLOOD COUNT 10.9 K/mm3 (4.0-10.0)
[2017-07-04] MEDS: ALBUTEROL SO4 0.083% IH SOL 2.5 MG/3 ML VIAL.NEB. NEB SCH ×4 (08:10→20:50)
[2017-07-04 08:15] LABS: ANION GAP 5 (8-16); BLOOD UREA NITROGEN 20 mg/dL (7-18); CALCIUM 8.8 mg/dL (8.5-10.1); CHLORIDE 104 mmol/L (98-107); CO2 32 mmol/L (21-32); GLUCOSE,RANDOM 175 mg/dL (74-106); MAGNESIUM 2.1 mg/dL (1.8-2.4); POTASSIUM 4.3 mmol/L (3.5-5.1); SODIUM 141 mmol/L (136-145)
[2017-07-04 08:16] LABS: PHOSPHOROUS 4.2 mg/dL (2.5-4.9)
[2017-07-04] MEDS: VALSARTAN 160 MG TABLET (UD) PO SCH (10:08)
[2017-07-04] MEDS: HYDROCHLOROTHIAZIDE 25 MG TABLET (FP) PO SCH (10:08)
--- NOTE | 2017-07-04 12:42 | PN ---
Progress Note, Physician Chief Complaint: Pt sitting in chair in no acute distress. surgery today. Pt reports he feels good, breathing without any difficulty. Denies any chest pain, sob, n/v/d or weakness. - Current Medication List Current Medications: Active Medications Albuterol Sulfate (Ventolin Hfa Inhaler -) 2 puff IH Q4H PRN PRN Reason: SHORTNESS OF BREATH Last Admin: 07/02/17 07:16 Dose: 2 puff Albuterol Sulfate (Ventolin 0.083% Nebulizer Soln -) 1 amp NEB RQID [facility] Last Admin: 07/04/17 11:35 Dose: 1 amp Hydrochlorothiazide (Hctz -) 25 mg PO DAILY [facility] Last Admin: 07/04/17 10:08 Dose: Not Given Potassium Chloride/Dextrose/Sod Cl (D5-1/2ns+20 Meq Kcl -) 20 meq in 1,000 mls @ 42 mls/hr IV ASDIR [facility] Last Admin: 07/04/17 00:07 Dose: 42 mls/hr Methylprednisolone Sodium Succinate (Solu-Medrol -) 40 mg IVPUSH Q8H-IV [facility] Last Admin: 07/04/17 10:09 Dose: 40 mg Ondansetron HCl (Zofran Injection) 4 mg IVPUSH Q6H PRN PRN Reason: NAUSEA Valsartan (Diovan -) 160 mg PO DAILY [facility] Last Admin: 07/04/17 10:08 Dose: Not Given - Objective Vital Signs: Vital Signs Temperature 98.1 F 07/04/17 10:00 Pulse Rate 70 07/04/17 10:00 Respiratory Rate 20 07/04/17 10:00 Blood Pressure 152/79 07/04/17 10:00 O2 Sat by Pulse Oximetry (%) 98 07/03/17 21:00 Constitutional: Yes: Well Nourished, No Distress Cardiovascular: Yes: WNL, Regular Rate and Rhythm. No: Bruit, Gallop, Murmur Respiratory: Yes: Regular, Cough, Rhonchi, Wheezes. No: Accessory Muscle Use, SOB, Tachypnea Gastrointestinal: Yes: WNL, Normal Bowel Sounds. No: Distention, Tenderness Genitourinary: Yes: WNL Edema: Yes Edema: LLE: Trace, RLE: Trace Neurological: Yes: WNL, Alert, Oriented Psychiatric: Yes: WNL, Alert, Oriented Labs: CBC, BMP 07/04/17 07:24 07/04/17 07:24 INR, PTT INR 1.24 (0.82-1.09) H 06/29/17 06:00 Problem List - Problems (1) Acute pancreatitis Code(s): K85.90 - ACUTE PANCREATITIS WITHOUT NECROSIS OR INFECTION, UNSP Qualifiers: Pancreatitis type: biliary Acute pancreatitis complication: unspecified Qualified Code(s): K85.10 - Biliary acute pancreatitis without necrosis or infection (2) Chest pain Code(s): R07.9 - CHEST PAIN, UNSPECIFIED Qualifiers: Chest pain type: other chest pain Qualified Code(s): R07.89 - Other chest pain; R07.8 - Other chest pain (3) Leukocytosis Code(s): D72.829 - ELEVATED WHITE BLOOD CELL COUNT, UNSPECIFIED (4) HTN (hypertension) Code(s): I10 - ESSENTIAL (PRIMARY) HYPERTENSION Qualifiers: Hypertension type: essential hypertension Qualified Code(s): I10 - Essential (primary) hypertension (5) Hyperlipidemia Code(s): E78.5 - HYPERLIPIDEMIA, UNSPECIFIED (6) ASHD (arteriosclerotic heart disease) Code(s): I25.10 - ATHSCL HEART DISEASE OF [place] CORONARY ARTERY W/O ANG PCTRS (7) Emphysema lung Code(s): J43.9 - EMPHYSEMA, UNSPECIFIED Qualifiers: Emphysema type: unspecified Qualified Code(s): J43.9 - Emphysema, unspecified (8) Cholecystectomy planned Code(s): [id number] - (9) Hypophosphatemia Code(s): E83.39 - OTHER DISORDERS OF PHOSPHORUS METABOLISM (10) Biliary acute pancreatitis Code(s): K85.10 - BILIARY ACUTE PANCREATITIS WITHOUT NECROSIS OR INFECTION Qualifiers: Acute pancreatitis complication: no infection or necrosis Qualified Code(s) : K85.10 - Biliary acute pancreatitis without necrosis or infection (11) Cholelithiasis Code(s): K80.20 - CALCULUS OF GALLBLADDER W/O CHOLECYSTITIS W/O OBSTRUCTION Qualifiers: Cholelithiasis location: gallbladder Cholecystitis presence: without cholecystitis Biliary obstruction: without biliary obstruction Qualified Code(s): K80.20 - Calculus of gallbladder without cholecystitis without obstruction (12) Hyperbilirubinemia Code(s): E80.6 - OTHER DISORDERS OF BILIRUBIN METABOLISM (13) Elevated C-reactive protein (CRP) Code(s): R79.82 - ELEVATED C-REACTIVE PROTEIN (CRP) (14) Wheezing Code(s): R06.2 - WHEEZING (15) Pedal edema Code(s): R60.0 - LOCALIZED EDEMA Assessment/Plan (1) Cholecystectomy planned Assessment/Plan: LAP CHOLECYSTECTOMY today cardiology/pulm clearance in place Code(s): [id number] - (2) Acute pancreatitis Assessment/Plan: acute interstitial, lipase/amylase significantly improved lfts improved, suspect passing of stone abd US with biliary sludge/stones abd CT consistent w/ pancreatitis MRCP- cholelithiasis, no cbd stone GI following Surgery following Code(s): K85.90 - ACUTE PANCREATITIS WITHOUT NECROSIS OR INFECTION, UNSP Qualifiers: Pancreatitis type: biliary Acute pancreatitis complication: unspecified Qualified Code(s): K85.10 - Biliary acute pancreatitis without necrosis or infection (3) Chest pain Assessment/Plan: resolved Code(s): R07.9 - CHEST PAIN, UNSPECIFIED Qualifiers: Chest pain type: other chest pain Qualified Code(s): R07.89 - Other chest pain; R07.8 - Other chest pain (4) Leukocytosis Assessment/Plan: resolved borderline elevation noted, secondary to ivsteroids, infec etiology unlikely Code(s): D72.829 - ELEVATED WHITE BLOOD CELL COUNT, UNSPECIFIED (5) HTN (hypertension) Assessment/Plan: controlled continue diovan/hct will monitor Code(s): I10 - ESSENTIAL (PRIMARY) HYPERTENSION Qualifiers: Hypertension type: essential hypertension Qualified Code(s): I10 - Essential (primary) hypertension (6) Hyperlipidemia Assessment/Plan: stable hold statin for now Code(s): E78.5 - HYPERLIPIDEMIA, UNSPECIFIED (7) ASHD (arteriosclerotic heart disease) Assessment/Plan: stable, s/p cabg(1995) hold plavix, statin followed by cardiology outpt Code(s): I25.10 - ATHSCL HEART DISEASE OF [place] CORONARY ARTERY W/O ANG PCTRS (8) Emphysema lung Assessment/Plan: wheezing/rhonchi on exam, denies sob continue nebs/medrol chest xray without acute findings pulm following will monitor Code(s): J43.9 - EMPHYSEMA, UNSPECIFIED Qualifiers: Emphysema type: unspecified Qualified Code(s): J43.9 - Emphysema, unspecified (9) Hypophosphatemia Assessment/Plan: resolved Code(s): E83.39 - OTHER DISORDERS OF PHOSPHORUS METABOLISM (10) Wheezing Assessment/Plan: as above Code(s): R06.2 - WHEEZING (11) Pedal edema Assessment/Plan: improved Code(s): R60.0 - LOCALIZED EDEMA
--- NOTE | 2017-07-04 13:10 | PN ---
Progress Note, Physician History of Present Illness: PULMONARY ALERT,NAD,SITTING UP IN BED -SOB,+MILD COUGH - Current Medication List Current Medications: Active Medications Albuterol Sulfate (Ventolin Hfa Inhaler -) 2 puff IH Q4H PRN PRN Reason: SHORTNESS OF BREATH Last Admin: 07/02/17 07:16 Dose: 2 puff Albuterol Sulfate (Ventolin 0.083% Nebulizer Soln -) 1 amp NEB RQID [facility] Last Admin: 07/04/17 11:35 Dose: 1 amp Hydrochlorothiazide (Hctz -) 25 mg PO DAILY [facility] Last Admin: 07/04/17 10:08 Dose: Not Given Potassium Chloride/Dextrose/Sod Cl (D5-1/2ns+20 Meq Kcl -) 20 meq in 1,000 mls @ 42 mls/hr IV ASDIR [facility] Last Admin: 07/04/17 00:07 Dose: 42 mls/hr Methylprednisolone Sodium Succinate (Solu-Medrol -) 40 mg IVPUSH Q8H-IV [facility] Last Admin: 07/04/17 10:09 Dose: 40 mg Ondansetron HCl (Zofran Injection) 4 mg IVPUSH Q6H PRN PRN Reason: NAUSEA Valsartan (Diovan -) 160 mg PO DAILY [facility] Last Admin: 07/04/17 10:08 Dose: Not Given - Objective Vital Signs: Vital Signs Temperature 98.1 F 07/04/17 10:00 Pulse Rate 70 07/04/17 10:00 Respiratory Rate 20 07/04/17 10:00 Blood Pressure 152/79 07/04/17 10:00 O2 Sat by Pulse Oximetry (%) 98 07/03/17 21:00 Constitutional: Yes: Well Nourished, Calm Eyes: Yes: WNL HENT: Yes: Nasal Congestion Neck: Yes: WNL Cardiovascular: Yes: Regular Rate and Rhythm, S1, S2 Respiratory: Yes: Wheezes (FEW WHEEZES) Gastrointestinal: Yes: Normal Bowel Sounds, Soft Extremities: Yes: WNL Edema: No Labs: CBC, BMP 07/04/17 07:24 07/04/17 07:24 INR, PTT INR 1.24 (0.82-1.09) H 06/29/17 06:00 Assessment/Plan Problem List - Problems (1) ASHD (arteriosclerotic heart disease) Code(s): I25.10 - ATHSCL HEART DISEASE OF [place] CORONARY ARTERY W/O ANG PCTRS (2) Biliary acute pancreatitis Code(s): K85.10 - BILIARY ACUTE PANCREATITIS WITHOUT NECROSIS OR INFECTION Qualifiers: Acute pancreatitis complication: no infection or necrosis Qualified Code(s) : K85.10 - Biliary acute pancreatitis without necrosis or infection (3) Cholecystectomy planned Code(s): [id number] - (4) Cholelithiasis Code(s): K80.20 - CALCULUS OF GALLBLADDER W/O CHOLECYSTITIS W/O OBSTRUCTION Qualifiers: Cholelithiasis location: gallbladder Cholecystitis presence: without cholecystitis Biliary obstruction: without biliary obstruction Qualified Code(s): K80.20 - Calculus of gallbladder without cholecystitis without obstruction (5) Colon polyps Code(s): K63.5 - POLYP OF COLON (6) Emphysema lung Code(s): J43.9 - EMPHYSEMA, UNSPECIFIED Qualifiers: Emphysema type: unspecified Qualified Code(s): J43.9 - Emphysema, unspecified (7) HTN (hypertension) Code(s): I10 - ESSENTIAL (PRIMARY) HYPERTENSION Qualifiers: Hypertension type: essential hypertension Qualified Code(s): I10 - Essential (primary) hypertension (8) Hyperbilirubinemia Code(s): E80.6 - OTHER DISORDERS OF BILIRUBIN METABOLISM (9) Hyperlipidemia Code(s): E78.5 - HYPERLIPIDEMIA, UNSPECIFIED (10) Wheezing Code(s): R06.2 - WHEEZING Assessment/Plan Medrol same dose BD TX O2 as needed No ABX indicated Cholecystectomy today DR HILL
[2017-07-04] MEDS ORDERED: BUPIVACAINE HCL/PF 0.5% (5MG/ML) 10 ML VIAL ONE (14:34)
[2017-07-04] MEDS ORDERED: ONDANSETRON 4 MG/2 ML VIAL IVPUSH PRN ×2 (14:48→18:02)
[2017-07-04] MEDS ORDERED: LIDOCAINE HCL/PF 2% SDV 5ML VIAL ONE (14:55)
[2017-07-04] MEDS ORDERED: PROPOFOL 20 ML ONE (14:55)
[2017-07-04] MEDS ORDERED: CEFOXITIN SODIUM 1 GM in SODIUM CHLORIDE 100 ML IVPB ONE (15:00)
[2017-07-04] MEDS ORDERED: LACTATED RINGERS SOLUTION 1,000 ML IV SCH (15:00)
[2017-07-04] MEDS ORDERED: CEFOXITIN SODIUM 1 GM IVPB ONE (15:06)
[2017-07-04] MEDS ORDERED: cefOXitin SODIUM 1 GM VIAL (RESTRICTED TO ID) IVPB ONE (15:22)
[2017-07-04] MEDS ORDERED: DEXAMETHASONE SOD PHOSPHATE 4 MG/1 ML VIAL ONE (16:12)
[2017-07-04] MEDS ORDERED: NEOSTIGMINE METHYLSULFATE 0.5 MG/ML - 10 ML MDV ONE (16:15)
[2017-07-04] MEDS ORDERED: BUPIVACAINE HCL/PF 0.5% (5MG/ML) 10 ML VIAL IJ ONE ×2 (16:15)
[2017-07-04] MEDS ORDERED: GLYCOPYRROLATE 0.2 MG/1 ML VIAL ONE (16:15)
--- NOTE | 2017-07-04 16:47 | OP ---
Operative Note - Note: Operative Date: 07/04/17 Pre-Operative Diagnosis: gallstone pancreatitis Operation: laparoscopic cholecystectomy Findings: distended gallbladder thin walled with small micro stones stones, critical view identified Post-Operative Diagnosis: Same as Pre-op Surgeon: Norberto Andrade Cloth Cutting Inspector: Ran Marroquin Anesthesia: General, Local (marcaine 0.5% 20 ml) Estimated Blood Loss (mls): 10 Fluid Volume Replaced (mls): 700 (crystalloid ) Operative Report Dictated: Yes
[2017-07-04] MEDS ORDERED: IBUPROFEN 600 MG TABLET (FP) PO PRN ×2 (16:48→18:02)
[2017-07-04] MEDS ORDERED: morphine SULFATE 4 MG/ML VIAL IVPUSH PRN ×2 (16:48→18:02)
[2017-07-04] MEDS ORDERED: ACETAMINOPHEN 325 MG TABLET (FP) PO PRN ×2 (16:48→18:02)
[2017-07-04] MEDS ORDERED: ALBUTEROL SO4 18 GM HFA INHALER IH PRN (18:02)
--- NOTE | 2017-07-04 22:29 | OP ---
DATE OF OPERATION: 07/04/2017 PREOPERATIVE DIAGNOSIS: Gallstone pancreatitis. POSTOPERATIVE DIAGNOSIS: Gallstone pancreatitis. PROCEDURE: Laparoscopic cholecystectomy. ATTENDING SURGEON: Norberto Andrade MD BONUS CLERK: Ran Marroquin MD ANESTHESIOLOGIST: Ana Davalos MD ANESTHESIA TYPE: General with local. Local consisted of 0.5% Marcaine, a total of 20 mL given in an area block fashion at the port sites. ESTIMATED BLOOD LOSS: 10 mL INTRAVENOUS FLUID: Crystalloid 700 mL. SPECIMEN SENT: Gallbladder and stones. BRIEF FINDINGS: Distended, thin-walled gallbladder; small microgallstones; critical view identified. Excellent hemostasis postop. INDICATION: Patient is a 77-year-old male presenting with gallstone pancreatitis, second episode. Microcalcifications seen on imaging. Counseled regarding risks, benefits, and alternatives of laparoscopic cholecystectomy after he was advised by his primary team that he should have a cholecystectomy prior to discharge. He signed informed consent, was taken for the procedure. DESCRIPTION OF PROCEDURE: Patient was brought to the operating room, placed in supine position on the operating table with the right arm tucked and the left arm extended 90 degrees perpendicular to the body's axis. The lower extremities had bilateral SCDs placed to compression. The patient was induced with general anesthesia, endotracheally intubated, received intravenous antibiotics prior to surgery. The anterior abdominal wall was shaved, prepped, and draped in standard surgical fashion, blocking the upper abdomen. After a formal timeout was completed, identifying the operative procedure and the site, with all parties in agreement, we began with a Mariposa entry in the supraumbilical position. Incision was scribed and then incised with a 15-blade scalpel, deepened and widened through the subcutaneous tissue, identifying the midline abdominal fascia. It was divided in the midline of the rectus, and then, this was elevated into the surgical field. Blunt entry was then made into the abdomen with the fascia elevated. A 0 Vicryl was used to lay in a figure-of-8 stitch at the site of the 12-mm entry to ablate the space postoperatively. A 12-mm Mariposa trocar was then introduced into the abdomen, and pneumoperitoneum was established to 15 mmHg. At which point, we began to inspect the entry site. It was atraumatic. We then visualized the gallbladder which was covered by a large amount of omental fat which was swept away easily, revealing a distended gallbladder which was thin walled. Additional trocars were established at the subxiphoid position and two in the right abdomen. The gallbladder was grasped and retracted towards the left upper abdomen cranially, and with a grasper, the infundibulum was grasped and retracted towards the right side of the abdomen. At which point, we began to identify the cystic structures. Both the cystic duct and artery were identified, and then, planes were developed anterior to posterior to them. The cystic duct, once identified, was crossclamped with 5-mm clips. The cystic artery was also identified and clipped with 5-mm clips and transected. Upon transection, there was a small amount of spillage of bile and stones. This was suctioned from the abdomen. A plane was then developed using hook Bovie cautery to relieve the gallbladder from the liver's bed. Hemostasis was obtained with Bovie cautery where necessary. The gallbladder, once removed from the liver, was then retrieved from the abdomen using a 10-mm Endo Catch bag from the umbilical port, after re-siting the camera to the subxiphoid position. Once the gallbladder had been retrieved, it was inspected, appeared to be distended but collapsed at this point. It was passed off for final pathologic diagnosis. The liver bed was re-inspected, and hemostasis was obtained using Bovie cautery where necessary. Clots and a small amount of bile was suctioned and then irrigated until clear. Trocars were then removed under direct visualization, and the pneumoperitoneum was relieved. Patient was returned to normal level position, and the skin was cleaned. The Mariposa port was tied with a figure-of-8, and then, the skin was repaired at the subcuticle layer using a running subcuticular 4-0 Vicryl at the port sites as well as the umbilical Mariposa entry. The skin was cleaned. Sterile dressings were placed, including Steri-Strips, gauze sponges, and Tegaderm. The patient was awoken from general anesthesia and extubated in the operating room, stable throughout the procedure. Counts were correct. The patient returned to Recovery in stable condition. MD SARAH Garcia/[id number]
--- NOTE | 2017-07-04 23:34 | PN ---
Progress Note (short form) - Note Progress Note: Agree with KEVIN Allen's note -Kal Maria MD
--- NOTE | 2017-07-04 23:35 | PN ---
Progress Note (short form) - Note Progress Note: Agree with KEVIN Allen's note -Kal Maria MD
[2017-07-05] MEDS: methylPREDNISolone NA SUCC 40 MG/1 ML VIAL IVPUSH SCH ×2 (01:42→10:21)
[2017-07-05 07:22] LABS: BASO % 0.1 % (0-2.0); EOS % 0.1 % (0-4.5); HEMATOCRIT 37.6 % (35.4-49); HEMOGLOBIN 12.7 GM/dL (11.7-16.9); LYMPH % 3.2 % (8-40); MCH 30.8 pg (25.7-33.7); MCHC 33.8 g/dl (32.0-35.9); MEAN CELL VOLUME 91.2 fl (80-96); MEAN PLT VOLUME 7.6 fl (7.5-11.1); MONO % 3.2 % (3.8-10.2); NEUT % 93.4 % (42.8-82.8); PLATELET COUNT 239 K/MM3 (134-434); RBC 4.12 M/mm3 (4.00-5.60); RDW 14.1 % (11.9-15.9); WHITE BLOOD COUNT 11.6 K/mm3 (4.0-10.0)
[2017-07-05] MEDS: ALBUTEROL SO4 0.083% IH SOL 2.5 MG/3 ML VIAL.NEB. NEB SCH ×2 (07:35→11:20)
[2017-07-05 08:12] LABS: ANION GAP 8 (8-16); BILIRUBIN,TOTAL 0.5 mg/dL (0.2-1.0); BLOOD UREA NITROGEN 22 mg/dL (7-18); CALCIUM 8.3 mg/dL (8.5-10.1); CHLORIDE 104 mmol/L (98-107); CO2 30 mmol/L (21-32); GLUCOSE,RANDOM 151 mg/dL (74-106); POTASSIUM 4.1 mmol/L (3.5-5.1); SGOT/AST 60 U/L (15-37); SGPT/ALT 78 U/L (12-78); SODIUM 142 mmol/L (136-145); TOT PROT 6.1 g/dl (6.4-8.2)
[2017-07-05 08:13] LABS: ALK PHOS 69 U/L (45-117)
--- NOTE | 2017-07-05 08:27 | PN ---
Progress Note, Physician Chief Complaint: s/p lap cholecystectomy under general anesthesia History of Present Illness: post op day one - Current Medication List Current Medications: Active Medications Acetaminophen (Tylenol -) 650 mg PO Q6H PRN PRN Reason: PAIN LEVEL 1-5 Albuterol Sulfate (Ventolin 0.083% Nebulizer Soln -) 1 amp NEB RQID [facility] Last Admin: 07/05/17 07:35 Dose: 1 amp Albuterol Sulfate (Ventolin Hfa Inhaler -) 2 puff IH Q4H PRN PRN Reason: SHORTNESS OF BREATH Hydrochlorothiazide (Hctz -) 25 mg PO DAILY [facility] Potassium Chloride/Dextrose/Sod Cl (D5-1/2ns+20 Meq Kcl -) 20 meq in 1,000 mls @ 42 mls/hr IV ASDIR [facility] Last Admin: 07/04/17 18:37 Dose: Not Given Ibuprofen (Motrin -) 600 mg PO Q6H PRN PRN Reason: PAIN LEVEL 1-5 Methylprednisolone Sodium Succinate (Solu-Medrol -) 40 mg IVPUSH Q8H-IV [facility] Last Admin: 07/05/17 01:42 Dose: 40 mg Morphine Sulfate (Morphine Sulfate) 2 mg IVPUSH Q6H PRN PRN Reason: PAIN LEVEL 7 - 10 Ondansetron HCl (Zofran Injection) 4 mg IVPUSH Q6H PRN PRN Reason: NAUSEA Valsartan (Diovan -) 160 mg PO DAILY [facility] - Objective Vital Signs: Vital Signs Temperature 98.1 F 07/05/17 06:00 Pulse Rate 70 07/05/17 06:00 Respiratory Rate 20 07/05/17 06:00 Blood Pressure 151/78 07/05/17 06:00 O2 Sat by Pulse Oximetry (%) 99 07/04/17 21:00 Constitutional: Yes: Well Nourished Cardiovascular: Yes: WNL Respiratory: Yes: WNL Gastrointestinal: Yes: Tenderness Labs: CBC, BMP 07/05/17 06:25 INR, PTT INR 1.24 (0.82-1.09) H 06/29/17 06:00 Assessment/Plan No adverse effet of anesthetic, pain controlled, no nausea or vomiting. Dept of anesthesia will sign off care at this time.
[2017-07-05 08:49] LABS: LIPASE 278 U/L (73-393)
--- NOTE | 2017-07-05 09:45 | PN ---
Progress Note, Physician Chief Complaint: abdominal pain History of Present Illness: 77 yo male PMH HTN, ASHD, OR-s/p CABG(1995), Asthma, Emphysema who presents with new onset right upper abdominal pain x 1 day. Planned Cholecystectomy was delayed due to poor respiratory status Tuesday. Seen by pulmonary and stable postopertively. - Current Medication List Current Medications: Active Medications Acetaminophen (Tylenol -) 650 mg PO Q6H PRN PRN Reason: PAIN LEVEL 1-5 Albuterol Sulfate (Ventolin 0.083% Nebulizer Soln -) 1 amp NEB RQID [facility] Last Admin: 07/05/17 07:35 Dose: 1 amp Albuterol Sulfate (Ventolin Hfa Inhaler -) 2 puff IH Q4H PRN PRN Reason: SHORTNESS OF BREATH Hydrochlorothiazide (Hctz -) 25 mg PO DAILY [facility] Potassium Chloride/Dextrose/Sod Cl (D5-1/2ns+20 Meq Kcl -) 20 meq in 1,000 mls @ 42 mls/hr IV ASDIR [facility] Last Admin: 07/04/17 18:37 Dose: Not Given Ibuprofen (Motrin -) 600 mg PO Q6H PRN PRN Reason: PAIN LEVEL 1-5 Methylprednisolone Sodium Succinate (Solu-Medrol -) 40 mg IVPUSH Q8H-IV [facility] Last Admin: 07/05/17 01:42 Dose: 40 mg Morphine Sulfate (Morphine Sulfate) 2 mg IVPUSH Q6H PRN PRN Reason: PAIN LEVEL 7 - 10 Ondansetron HCl (Zofran Injection) 4 mg IVPUSH Q6H PRN PRN Reason: NAUSEA Valsartan (Diovan -) 160 mg PO DAILY [facility] - Objective Vital Signs: Vital Signs Temperature 98.1 F 07/05/17 06:00 Pulse Rate 70 07/05/17 06:00 Respiratory Rate 20 07/05/17 06:00 Blood Pressure 151/78 07/05/17 06:00 O2 Sat by Pulse Oximetry (%) 99 07/04/17 21:00 Vital Signs Period Temp Pulse Resp BP Sys/Hancock Pulse Ox Last 24 Hr 98 F-98.8 F 64-81 16-20 140-173/60-79 96-99 Constitutional: Yes: Well Nourished, No Distress, Calm Eyes: Yes: Conjunctiva Clear, EOM Intact HENT: Yes: Atraumatic, Normocephalic Neck: Yes: Supple, Trachea Midline Cardiovascular: Yes: Regular Rate and Rhythm, S1, S2 Respiratory: Yes: Regular, CTA Bilaterally Gastrointestinal: Yes: Normal Bowel Sounds, Soft, Abdomen, Obese, Tenderness ( incisonal) Genitourinary: No: CVA Tenderness - Left, CVA Tenderness - Right Extremities: No: Cool, Cyanosis Wound/Incision: Yes: Clean/Dry, Well Approximated, Dressing Dry and Intact Neurological: Yes: Alert, Oriented Psychiatric: Yes: Alert, Oriented Labs: CBC,CMP WBC 11.6 K/mm3 (4.0-10.0) H 07/05/17 06:25 RBC 4.12 M/mm3 (4.00-5.60) 07/05/17 06:25 Hgb 12.7 GM/dL (11.7-16.9) 07/05/17 06:25 Hct 37.6 % (35.4-49) 07/05/17 06:25 MCV 91.2 fl (80-96) 07/05/17 06:25 MCH 30.8 pg (25.7-33.7) 07/05/17 06:25 MCHC 33.8 g/dl (32.0-35.9) 07/05/17 06:25 RDW 14.1 % (11.9-15.9) 07/05/17 06:25 Plt Count 239 K/MM3 (134-434) 07/05/17 06:25 MPV 7.6 fl (7.5-11.1) 07/05/17 06:25 Neutrophils % 93.4 % (42.8-82.8) H 07/05/17 06:25 Lymphocytes % 3.2 % (8-40) L D 07/05/17 06:25 Monocytes % 3.2 % (3.8-10.2) L 07/05/17 06:25 Eosinophils % 0.1 % (0-4.5) D 07/05/17 06:25 Basophils % 0.1 % (0-2.0) 07/05/17 06:25 Sodium 142 mmol/L (136-145) 07/05/17 06:25 Potassium 4.1 mmol/L (3.5-5.1) 07/05/17 06:25 Chloride 104 mmol/L (98-107) 07/05/17 06:25 Carbon Dioxide 30 mmol/L (21-32) 07/05/17 06:25 Anion Gap 8 (8-16) 07/05/17 06:25 BUN 22 mg/dL (7-18) H 07/05/17 06:25 Creatinine 1.0 mg/dL (0.7-1.3) 07/05/17 06:25 Creat Clearance w eGFR > 60 (>60) 07/05/17 06:25 POC Glucometer 98 UNITS (80-120) 06/29/17 05:35 Random Glucose 151 mg/dL (74-106) H 07/05/17 06:25 Lactic Acid 1.1 mmol/L (0.0-2.0) 06/30/17 06:50 Calcium 8.3 mg/dL (8.5-10.1) L 07/05/17 06:25 Phosphorus 4.2 mg/dL (2.5-4.9) 07/04/17 07:24 Magnesium 2.1 mg/dL (1.8-2.4) 07/04/17 07:24 Total Bilirubin 0.5 mg/dL (0.2-1.0) 07/05/17 06:25 AST 60 U/L (15-37) H D 07/05/17 06:25 ALT 78 U/L (12-78) D 07/05/17 06:25 Alkaline Phosphatase 69 U/L (45-117) 07/05/17 06:25 Creatine Kinase 259 IU/L (39-308) 06/27/17 12:00 Creatine Kinase Index 1.3 % (0.0-5.0) 06/27/17 12:00 CK-MB (CK-2) 3.372 ng/mL (0.5-3.6) 06/27/17 12:00 Troponin I 0.02 ng/ml (0.00-0.05) 06/28/17 07:00 C-Reactive Protein 15.2 MG/DL (0.00-0.3) H 06/30/17 06:50 Total Protein 6.1 g/dl (6.4-8.2) L 07/05/17 06:25 Albumin 3.0 g/dl (3.4-5.0) L 07/05/17 06:25 Triglycerides 102 mg/dL (35-160) 06/28/17 07:00 Cholesterol 172 mg/dL (50-200) 06/28/17 07:00 Total LDL Cholesterol 98 mg/dL (5-100) 06/28/17 07:00 HDL Cholesterol 59 mg/dL (40-60) 06/28/17 07:00 Total Amylase 64 U/L (25-115) 07/03/17 07:59 Lipase 278 U/L (73-393) 07/05/17 06:25 Problem List - Problems (1) Biliary acute pancreatitis Assessment/Plan: 77yo male MMP significant Cardiac history with gallstone pancreatitis, transient obstruction with gallstone s/p laparoscopic cholecystectomy, tolerating diet, sitting at the bedside, afebrile, voiding. Advance diet as tolerated adequate analgesia OOB and ambulate encourage IS May be be discharged at the discretion of primary team Dr. Marroquin is covering 07/06 to 07/10 Code(s): K85.10 - BILIARY ACUTE PANCREATITIS WITHOUT NECROSIS OR INFECTION Qualifiers: Acute pancreatitis complication: no infection or necrosis Qualified Code(s) : K85.10 - Biliary acute pancreatitis without necrosis or infection (2) ACS (acute coronary syndrome) Code(s): I24.9 - ACUTE ISCHEMIC HEART DISEASE, UNSPECIFIED (3) Cholelithiasis Code(s): K80.20 - CALCULUS OF GALLBLADDER W/O CHOLECYSTITIS W/O OBSTRUCTION Qualifiers: Cholelithiasis location: gallbladder Cholecystitis presence: without cholecystitis Biliary obstruction: without biliary obstruction Qualified Code(s): K80.20 - Calculus of gallbladder without cholecystitis without obstruction (4) HTN (hypertension) Code(s): I10 - ESSENTIAL (PRIMARY) HYPERTENSION Qualifiers: Hypertension type: essential hypertension Qualified Code(s): I10 - Essential (primary) hypertension (5) Hyperlipidemia Code(s): E78.5 - HYPERLIPIDEMIA, UNSPECIFIED (6) Leukocytosis Code(s): D72.829 - ELEVATED WHITE BLOOD CELL COUNT, UNSPECIFIED
[2017-07-05] MEDS ORDERED: HYDROCHLOROTHIAZIDE 25 MG TABLET (FP) PO SCH (10:00)
[2017-07-05] MEDS ORDERED: VALSARTAN 160 MG TABLET (UD) PO SCH (10:00)
[2017-07-05 12:00] VITALS: BP 148/61; PULSE 69; TEMP 98
--- NOTE | 2017-07-05 12:24 | PN ---
Progress Note (short form) - Note Progress Note: PULMONARY States breathing is better. Less cough and wheezing. Last Vital Signs Temp Pulse Resp BP Pulse Ox 98.0 F 69 19 148/61 96 07/05/17 10:00 07/05/17 10:00 07/05/17 10:00 07/05/17 10:00 07/05/17 09:00 Gen: NAD at rest Heart: RRR Lung: scattered rhonchi Abd: soft, nontender Ext: no edema CBC, BMP 07/05/17 06:25 07/05/17 06:25 Active Medications Acetaminophen (Tylenol -) 650 mg PO Q6H PRN PRN Reason: PAIN LEVEL 1-5 Albuterol Sulfate (Ventolin 0.083% Nebulizer Soln -) 1 amp NEB RQID [facility] Last Admin: 07/05/17 11:20 Dose: 1 amp Albuterol Sulfate (Ventolin Hfa Inhaler -) 2 puff IH Q4H PRN PRN Reason: SHORTNESS OF BREATH Hydrochlorothiazide (Hctz -) 25 mg PO DAILY [facility] Last Admin: 07/05/17 10:22 Dose: 25 mg Potassium Chloride/Dextrose/Sod Cl (D5-1/2ns+20 Meq Kcl -) 20 meq in 1,000 mls @ 42 mls/hr IV ASDIR [facility] Last Admin: 07/04/17 18:37 Dose: Not Given Ibuprofen (Motrin -) 600 mg PO Q6H PRN PRN Reason: PAIN LEVEL 1-5 Methylprednisolone Sodium Succinate (Solu-Medrol -) 40 mg IVPUSH Q8H-IV [facility] Last Admin: 07/05/17 10:21 Dose: 40 mg Morphine Sulfate (Morphine Sulfate) 2 mg IVPUSH Q6H PRN PRN Reason: PAIN LEVEL 7 - 10 Ondansetron HCl (Zofran Injection) 4 mg IVPUSH Q6H PRN PRN Reason: NAUSEA Valsartan (Diovan -) 160 mg PO DAILY [facility] Last Admin: 07/05/17 10:21 Dose: 160 mg A/P s/p Cholecystectomy Acute COPD Exacerbation CAD HTN Hyperlipidemia - can change steroids to PO prednisone 40mg daily and taper by 10mg q3 days until off - inhaled bronchodilators, can discharge on LABA/ICS (i.e Symbicort) and LAMA ( i.e.Spiriva) - incentive spirometry - will need outpt PFTs and f/u after prednisone taper
--- NOTE | 2017-07-05 12:40 | DS ---
Physical Examination Vital Signs: Vital Signs Temperature 98.0 F 07/05/17 10:00 Pulse Rate 69 07/05/17 10:00 Respiratory Rate 19 07/05/17 10:00 Blood Pressure 148/61 07/05/17 10:00 O2 Sat by Pulse Oximetry (%) 96 07/05/17 09:00 Constitutional: Yes: Well Nourished, No Distress Cardiovascular: Yes: WNL, Regular Rate and Rhythm. No: Gallop, Murmur, Rub Respiratory: Yes: Regular, Rhonchi (scattered). No: Accessory Muscle Use, On Nasal O2, SOB, SOB on Exertion, Tachypnea, Wheezes Gastrointestinal: Yes: WNL, Normal Bowel Sounds, Soft. No: Distention, Tenderness Renal/: Yes: WNL Edema: No Wound/Incision: Yes: Clean/Dry, Dressing Dry and Intact Neurological: Yes: WNL, Alert, Oriented Psychiatric: Yes: WNL, Alert, Oriented Labs: CBC, BMP 07/05/17 06:25 07/05/17 06:25 Discharge Summary Reason For Visit: PANCREATITIS Current Active Problems HTN (hypertension) (Chronic) Hyperlipidemia (Chronic) ASHD (arteriosclerotic heart disease) (Chronic) Emphysema lung (Chronic) Colon polyps (Chronic) Wheezing (Acute) Pedal edema (Chronic) Hospital Course: is a pleasant 77 year old male who was admitted with acute pancreatitis - biliary induced. abd US with biliary sludge/stones abd CT consistent w/ pancreatitis, MRCP- cholelithiasis, no cbd stone. Lipase/ amylase/lfts improved. Pt s/p lap cholecystectomy. Doing well, ambulating, pain controlled. He had an acute copd exacerbation while in the hospital with wheezing, pulm was consulted. Pt started on medrol with improvement. Pt cleared by surgery and pulm for discharge today. Prednisone taper as directed. Pt otherwise medically stable to be discharged home. F/u as directed. Condition: Improved - Instructions Diet, Activity, Other Instructions: Postoperative instructions: You had a laparoscopic cholecystectomy on 07/04/[address] Norberto Andrade of [facility]. Activity: Resume your usual activities gradually, but no heavy exertion or lifting more than 10-15 pounds for 1 month (INCLUDING BOWLING). Remove dressings 48 hours after surgery; sticky tapes underneath will fall off by themselves. You may shower daily starting then, just pat the incision areas dry. Eat lightly at first, but advance to your usual diet as tolerated. Pain: For pain, you may use and alternate Tylenol (acetaminophen) and/or ibuprofen every 6 hours each as needed; this means that you can take one OR the other at 3-hour intervals. If you are prescribed a Tylenol/narcotic combination for severe pain, use it instead of plain Tylenol as needed and switch back when your pain starts decreasing. Do not take more than 4000mg of acetaminophen in a day. Take medications as prescribed or indicated on the labeling. Follow-up: Call Dr. Andrade' office at [phone] to make your postop appointment (Tuesday ~2 weeks after surgery). Clinic is held in the [facility] on the first floor of [facility]. Call the office if you have: * increasing pain not responsive to pain medication * fever of 101F or higher * vomiting * unusual or increasing bleeding or drainage from wounds * increasing redness or swelling at wound sites * inability to urinate Also, see your primary medical doctor within 1-2 weeks. LOW FAT DIET, ACTIVITY DIRECTED BY SURGEON. WALK MUCH YOU CAN. USE INCENTIVE SPIROMETER AT HOME PREDNISONE TAPER OVER 6 DAYS DIRECTED YOUR BP HAS BEEN BORDERLINE ELEVATED HERE, COULD BE MULTIFACTORIAL. WILL DEFER MED ADJUSTMENT INPT. PLEASE F/U WITH PCP WITHIN 7 DAYS Referrals: Mac Castro MD [Staff Physician] - 2 Weeks (Pulmonary ) Norberto Andrade MD [Staff Physician] - 07/20/17 () Servando Celestin MD [Primary Care Provider] - 1 Week (BP CHECK, HOSPITAL F/U) Disposition: HOME - Home Medications Comprehensive Discharge Medication List: Ambulatory Orders Albuterol Sulfate [Proair Hfa] 8.5 gm IH Q4HWA PRN 06/27/17 Atorvastatin Ca [Lipitor] 40 mg PO HS 06/27/17 Clopidogrel Bisulfate [Plavix] 75 mg PO DAILY 06/27/17 Valsartan/Hydrochlorothiazide [Valsartan-Hctz 160-25 mg Tab] 1 each PO DAILY 12/06 Acetaminophen [Tylenol .Regular Strength -] 650 mg PO Q6H PRN tablet 07/05/17 Prednisone [Deltasone] See Taper PO DAILY #20 tablet 07/05/17
--- NOTE | 2017-07-06 15:04 | PATH ---
Surgical Pathology Report Patient Name: ROYAL GOODEN Med. Rec. #: [id number] /Age/Gender: 1940 (Age: 77) / M Account: [id number] Location: [address] [place] [address]/[facility] Taken: 07/04/2017 Received: 07/05/2017 Reported: 07/06/2017 Physicians: Mellissa Garcia M.D. Specimen(s) Received GALLBLADDER Clinical History Pancreatitis, acute, gallstone Final Diagnosis GALLBLADDER, LAPAROSCOPIC CHOLECYSTECTOMY: CHRONIC CHOLECYSTITIS AND CHOLELITHIASIS. Electronically Signed Jessa Back M.D. Gross Description Received in formalin, labeled "gallbladder," is a 6.2 x 2.0 x 1.6 cm. gallbladder with a 0.2 cm. in length portion of cystic duct attached. The outer surface is green with a focal defect and varies from smooth to shaggy. The lumen contains green, tenacious bile as well as abundant black, irregular to fragmented choleliths ranging from 0.1-0.6 cm in greatest dimension. The mucosa is green and velvety. The wall of the gallbladder averages 0.1 cm. in thickness. [place] Operator sections are submitted in one cassette. 07/05/201707/05/2017
== END 2017-07-05 13:38 | disposition home or self-care (01) | DRG 417 ==
LOC: JER 11:14 → JERBED 15:42 → J5S 17:07 → J4W 19:14 → J5S 06-30 15:24
PROVIDERS: ADMIT Internal Medicine; ATTEND Internal Medicine
PROC: 0W3P4ZZ Control Bleeding in Gastrointestinal Tract, Percutaneous Endoscopic Approach (ICD-10-PCS; 2017-07-04)
PROC: 0FT44ZZ Resection of Gallbladder, Percutaneous Endoscopic Approach (ICD-10-PCS; principal; 2017-07-04 14:30)
DX: K80.00 Calculus of gallbladder with acute cholecystitis without obstruction (principal); K85.10 Biliary acute pancreatitis without necrosis or infection; I24.9 Acute ischemic heart disease, unspecified; J44.1 Chronic obstructive pulmonary disease with (acute) exacerbation; R07.9 Chest pain, unspecified; Z95.1 Presence of aortocoronary bypass graft; I25.10 Atherosclerotic heart disease of native coronary artery without angina pectoris; I10 Essential (primary) hypertension; E78.5 Hyperlipidemia, unspecified; K63.5 Polyp of colon; R00.1 Bradycardia, unspecified; I25.2 Old myocardial infarction; Z87.891 Personal history of nicotine dependence; I73.9 Peripheral vascular disease, unspecified; E83.39 Other disorders of phosphorus metabolism
CPT/HCPCS: 36415; 71045-TC-FY; 71046-TC-FY; 74178-TC; 74181-TC; 76705-TC; 80048; 80053; 80061; 82150; 82550; 82553; 82962; 83605; 83690; 83721; 83735; 84100; 84484; 85025; 85610; 86140; 87040; 88304-TC; 93005; 93010; 94010; 94640; 94760; 97116-GP; 97161-GP; 99282-25; J7030